=== PATIENT | female | born 1950 | race Caucasian/White ===

== ENCOUNTER 2016-02-28 14:28 | Outpatient (RCR) | payer MEDICARE, OTHER ==
[2016-02-19 16:32] LABS: BASOPHILS # (AUTO) 0.1 10^3/uL (0.0-0.1); BASOPHILS % (AUTO) 1 % (0-10); EOSINOPHILS # (AUTO) 0.2 10^3/uL (0.0-0.3); EOSINOPHILS % (AUTO) 2 % (0-10); LYMPHOCYTES # (AUTO) 3.4 X 10^3 (1.0-4.0); LYMPHOCYTES % (AUTO) 29 % (12-44); MEAN CORPUSCULAR HEMOGLOBIN 29 PG (25-34); MEAN CORPUSCULAR HGB CONC 35 G/DL (32-36); MEAN CORPUSCULAR VOLUME 84 FL (80-99); MEAN PLATELET VOLUME 8.3 FL (7.4-10.4); MONOCYTES # (AUTO) 1.1 X 10^3 (0.0-1.0); MONOCYTES % (AUTO) 9 % (0-12); NEUTROPHILS % (AUTO) 59 % (42-75); PLATELET COUNT 491 10^3/uL (130-400); RED BLOOD COUNT 4.83 10^6/uL (4.35-5.85); RED CELL DISTRIBUTION WIDTH 14.3 % (10.0-14.5); WHITE BLOOD COUNT 11.8 10^3/uL (4.3-11.0)
--- OUTSIDE RECORDS SUMMARY | 2016-02-19 16:33 | XMS REPORT | Continuity of Care Document ---
Author Author [facility] Organization [facility] Address Unknown Phone Unavailable Care Team Providers Care Fresco Artist Name Role Phone EVELIA CHU MD PCP Insurance Providers Payer Name Policy Number Subscriber Name Relationship [facility] [id number] Thong Mora E 01 Advance Directives Directive Response Recorded Date/Time Advance Directives Yes 10/06/15 6:15pm Health Care Power of Cigar Tobacco Rehandler N ISN'T SURE 10/06/15 6:15pm Organ Donor Yes 10/06/15 6:15pm Resuscitation Status Full Code 10/06/15 6:15pm Chief Complaint and Reason for Visit Chief Complaint Upper Extremity Reason for Visit [id number] Problems Active Problems Medical Problem Onset Date Status Chest pain Unknown Acute Contusion of left hand, initial encounter Unknown Acute Leukocytosis Unknown Acute Leukocytosis Unknown Acute Medications Current Home Medications Medication Dose Units Route Directions Days/Qty Instructions Start Date Simvastatin 20 Mg 20 Mg Oral Bedtime 10/07/14 Omeprazole 40 Mg 40 Mg Oral Bedtime 10/07/14 Levothyroxine Sodium 112 Mcg 112 Mcg Oral Daily 10/07/14 Triamcinolone Acetonide 10.8 Ml 1 Ml Nasal Bedtime 10/07/14 Past Home Medications Medication Directions Ordered Status [Levothyroxine] , 112 Mcg Oral Daily 02/15/10 Discontinued Cetirizine Hcl 10 Mg Capsule, 10 Mg Oral Daily 02/15/10 Discontinued Omeprazole Magnesium 20 Mg Capsule.dr, 40 Mg Oral Daily 02/15/10 Discontinued Triamcinolone Acetonide 10.8 Ml [place], 10.8 Ml Nasal Bedtime 10/07/14 Discontinued Aspirin 81 Mg Tablet.dr, 81 Mg Oral Daily 10/08/14 Discontinued Social History Social History Problem Response Recorded Date/Time Alcohol Use Occasionally Uses 10/06/2015 6:15pm Recreational Drug Use No 10/06/2015 6:15pm Recent Foreign Travel No 10/06/2015 6:12pm Recent Infectious Disease Exposure No 10/06/2015 6:12pm Sexually Transmitted Disease No 10/06/2015 6:15pm Smoking Status Current Everyday Smoker 10/06/2015 6:15pm Do you dip or chew tobacco? No 10/06/2015 6:15pm Query Response Start Date Stop Date Smoking Status Current Everyday Smoker Hospital Discharge Instructions No hospital discharge instructions. Plan of Care Discharge Date 10/06/15 7:15pm Disposition 01 HOME, SELF-CARE Condition at Discharge Stable Instructions/Education Provided Contusion (ED) Prescriptions See Medication Section Referrals EVELIA CHU MD - Primary Care Physician Additional Instructions/Education ICE TO AREA AT 20 MINUTE INTERVALS ELEVATE HAND MUCH POSSIBLE TYLENOL AND MOTRIN NEEDED FOR PAIN OR FEVER FOLLOW UP WITH OCCUPATIONAL HEALTH ON Friday FOR FOLLOW UP All discharge instructions reviewed with patient and/or family. Voiced understanding. Functional Status No functional status results. Allergies, Adverse Reactions, Alerts Allergen Type Severity Reaction Status Last Updated Penicillins ([id number]) Allergy Unknown Active 10/07/14 Codeine Allergy Unknown Active 10/07/14 Immunizations Name Given Type Tetanus Booster (TDap) Less than 5yrs Historical Vital Signs Acute Vital Signs Vital Response Date/Time Temperature (Fahrenheit) 98 degrees F (97.6 - 99.5) 10/06/2015 6:12pm Temperature (Calculated Celsius) 36.6696 degrees C (36.4 - 37.5) 10/06/2015 6 :12pm Temperature Source Tympanic 10/06/2015 6:12pm Pulse Rate (adult) 97 bpm (60 - 90) 10/06/2015 6:12pm Respiratory Rate 18 bpm (12 - 24) 10/06/2015 6:12pm O2 Sat by Pulse Oximetry 98 % (88 - 100) 10/06/2015 6:12pm Blood Pressure 137/81 mm Hg 10/06/2015 6:12pm Blood Pressure Mean 99 mm Hg 10/06/2015 6:12pm Pain Pain Intensity 4 10/06/2015 6:12pm Height (Feet) 5 feet 10/06/2015 6:12pm Height (Inches) 4 inches 10/06/2015 6:12pm Height (Calculated Centimeters) 162.341645 cm 10/06/2015 6:12pm Weight (Pounds) 163 pounds 10/06/2015 6:12pm Weight (Calculated Kilograms) 73.659349 kilograms 10/06/2015 6:12pm Height 5 ft 4 in Weight 163 lb Body Mass Index 28.0 kg/m^2 Results Laboratory Results Test Name Result Units Flags Reference Collection Date/Time Result Date/ Time Comments White Blood Count 11.4 10^3/uL H 4.3-11.0 06/21/2015 2:33pm 06/21/2015 2: 43pm Red Blood Count 5.06 10^6/uL 4.35-5.85 06/21/2015 2:33pm 06/21/2015 2: 43pm Hemoglobin 14.9 G/DL 11.5-16.0 06/21/2015 2:33pm 06/21/2015 2:43pm Hematocrit 43 % 35-52 06/21/2015 2:33pm 06/21/2015 2:43pm Mean Corpuscular Volume 84 FL 80-99 06/21/2015 2:33pm 06/21/2015 2: 43pm Mean Corpuscular Hemoglobin 29 PG 25-34 06/21/2015 2:33pm 06/21/2015 2: 43pm Mean Corpuscular Hemoglobin Concent 35 G/DL 32-36 06/21/2015 2:33pm 07/2015 2:43pm Red Cell Distribution Width 13.8 % 10.0-14.5 06/21/2015 2:33pm 2015 2:43pm Platelet Count 472 10^3/uL H 130-400 06/21/2015 2:33pm 06/21/2015 2:43pm Mean Platelet Volume 8.2 FL 7.4-10.4 06/21/2015 2:33pm 06/21/2015 2: 43pm Neutrophils (%) (Auto) 65 % 42-75 06/21/2015 2:33pm 06/21/2015 2:43pm Lymphocytes (%) (Auto) 27 % 12-44 06/21/2015 2:33pm 06/21/2015 2:43pm Monocytes (%) (Auto) 6 % 0-12 06/21/2015 2:33pm 06/21/2015 2:43pm Eosinophils (%) (Auto) 2 % 0-10 06/21/2015 2:33pm 06/21/2015 2:43pm Basophils (%) (Auto) 1 % 0-10 06/21/2015 2:33pm 06/21/2015 2:43pm Neutrophils # (Auto) 7.4 X 10^3 1.8-7.8 06/21/2015 2:33pm 06/21/2015 2: 43pm Lymphocytes # (Auto) 3.1 X 10^3 1.0-4.0 06/21/2015 2:33pm 06/21/2015 2: 43pm Monocytes # (Auto) 0.6 X 10^3 0.0-1.0 06/21/2015 2:33pm 06/21/2015 2: 43pm Eosinophils # (Auto) 0.2 10^3/uL 0.0-0.3 06/21/2015 2:33pm 06/21/2015 2 :43pm Basophils # (Auto) 0.1 10^3/uL 0.0-0.1 06/21/2015 2:33pm 06/21/2015 2: 43pm Sodium Level 131 MMOL/L L 135-145 06/21/2015 2:33pm 06/21/2015 3:07pm Potassium Level 4.0 MMOL/L 3.6-5.0 06/21/2015 2:33pm 06/21/2015 3:07pm Chloride Level 98 MMOL/L 98-107 06/21/2015 2:33pm 06/21/2015 3:07pm Carbon Dioxide Level 26 MMOL/L 21-32 06/21/2015 2:33pm 06/21/2015 3: 07pm Anion Gap 7 MMOL/L 5-14 06/21/2015 2:33pm 06/21/2015 3:07pm Blood Urea Nitrogen 13 MG/DL 7-18 06/21/2015 2:33pm 06/21/2015 3:07pm Creatinine 0.77 MG/DL 0.60-1.30 06/21/2015 2:33pm 06/21/2015 3:07pm BUN/Creatinine Ratio 17 06/21/2015 2:33pm 06/21/2015 3:07pm Estimat Glomerular Filtration Rate > 60 06/21/2015 2:33pm 2015 3:07pm GFR INTERPRETIVE DATA UNITS FOR ESTIMATED GFR (eGFR): mL/min/1.73 M2 REFERENCE RANGE FOR ESTIMATED GFR (eGFR) eGFR NORMAL eGFR >60 MODERATELY DECREASED eGFR 30-59 SEVERLY DECREASED eGFR 15-29 KIDNEY FAILURE <15 (OR DIALYSIS) Glucose Level 179 MG/DL H 70-105 06/21/2015 2:33pm 06/21/2015 3:07pm Calcium Level 9.8 MG/DL 8.5-10.1 06/21/2015 2:33pm 06/21/2015 3:07pm Total Bilirubin 0.3 MG/DL 0.1-1.0 06/21/2015 2:33pm 06/21/2015 3:07pm Alkaline Phosphatase 110 U/L 40-136 06/21/2015 2:33pm 06/21/2015 3: 07pm Aspartate Amino Transf (AST/SGOT) 15 U/L 5-34 06/21/2015 2:33pm 2015 3:07pm Alanine Aminotransferase (ALT/SGPT) 19 U/L 0-55 06/21/2015 2:33pm 06/21 3:07pm Total Protein 7.3 G/DL 6.4-8.2 06/21/2015 2:33pm 06/21/2015 3:07pm Albumin 4.5 G/DL 3.2-4.5 06/21/2015 2:33pm 06/21/2015 3:07pm Ferritin 55 NG/ML 15-150 06/21/2015 2:33pm 06/22/2015 7:04am Test performed at [facility] [address], [facility] [address] CLIA# [id number], Roma Matias MD - Restaurant Hostess Iron Level 57 UG/DL 35-180 06/21/2015 2:33pm 06/22/2015 7:04am Test performed at [facility] [address] [facility] [address] CLIA# [id number], Blanca Hill MD - Restaurant Hostess Transferrin % Saturation 15 % 15-50 06/21/2015 2:33pm 06/22/2015 7: 04am Total Iron Binding Capacity 369 UG/DL 280-380 06/21/2015 2:33pm 2015 7:04am Unsaturated Iron Binding Capacity 312 MCG/DL 06/21/2015 2:33pm 2015 7:04am Test performed at [address] [address] IA# [id number], Blanca Hill MD - Restaurant Hostess Procedures No known history of procedures. Encounters Encounter Location Arrival/Admit Date Discharge/Depart Date Attending Provider Departed Emergency Room [facility] 10/06/15 5:59pm 10/05 7:15pm EVELIA VALADEZ DO Discharged Recurring [facility] 06/21/15 2:22pm 11:59pm JAYDON WRIGHT MD Recent Diagnosis
[2016-02-19 16:55] LABS: ALANINE AMINOTRANSFERASE 7 U/L (0-55); ALBUMIN 4.6 G/DL (3.2-4.5); ANION GAP 12 MMOL/L (5-14); ASPARTATE AMINO TRANSFERASE 13 U/L (5-34); BILIRUBIN,TOTAL 0.1 MG/DL (0.1-1.0); BLOOD UREA NITROGEN 10 MG/DL (7-18); BUN/CREATININE RATIO 14; CALCIUM 9.4 MG/DL (8.5-10.1); CARBON DIOXIDE 19 MMOL/L (21-32); CHLORIDE 99 MMOL/L (98-107); CREATININE SERUM 0.71 MG/DL (0.60-1.30); GFR ESTIMATED > 60; GLUCOSE 97 MG/DL (70-105); POTASSIUM 4.3 MMOL/L (3.6-5.0); SODIUM 130 MMOL/L (135-145); TOTAL PROTEIN 7.4 G/DL (6.4-8.2)
[2016-02-19 17:15] LABS: THYROID STIMULATING HORMONE 2.87 UIU/ML (0.35-4.94)
[~2016-02-28 14:28] MED LIST: ASPI-266 PO; CETI10CA PO; LEVOTHYROXINE PO; LVT.112T PO; OMEP-83 PO; OMEP40CA36 PO; SIMV20TA3 PO; TRIA10.8 NS
== END 2016-05-19 | disposition home or self-care (01) ==
LOC: ONC 14:28
PROVIDERS: ATTEND Internal Medicine Hematology & Oncology
DX: D47.3 Essential (hemorrhagic) thrombocythemia (principal); E03.9 Hypothyroidism, unspecified; K21.9 Gastro-esophageal reflux disease without esophagitis; F17.210 Nicotine dependence, cigarettes, uncomplicated; Z79.899 Other long term (current) drug therapy
CPT/HCPCS: 36415; 80053; 82232; 82728; 83540; 84443; 85025; 99213

== ENCOUNTER 2016-08-20 15:55 | Outpatient (RCR) | payer MEDICARE, OTHER ==
--- OUTSIDE RECORDS SUMMARY | 2016-06-12 12:58 | XMS REPORT | Continuity of Care Document ---
Author Author [facility] Organization [facility] Address Unknown Phone Unavailable Care Team Providers Care Tool And Die Designer Name Role Phone EVELIA CHU MD PCP Insurance Providers Payer Name Policy Number Subscriber Name Relationship [facility] [id number] Thong Mora E 01 Advance Directives Directive Response Recorded Date/Time Advance Directives Yes 10/06/15 6:15pm Health Care Power of Adhesion Tester N ISN'T SURE 10/06/15 6:15pm Organ Donor Yes 10/06/15 6:15pm Resuscitation Status Full Code 10/06/15 6:15pm Chief Complaint and Reason for Visit Chief Complaint Upper Extremity Reason for Visit [id number] Problems Active Problems Medical Problem Onset Date [...] Daily 02/15/10 Discontinued Triamcinolone Acetonide 10.8 Ml [place], 10.8 Ml Nasal Bedtime 10/07/14 Discontinued Aspirin [...] Type Severity Reaction Status Last Updated Penicillins ([id number]) Allergy Unknown Active 10/07/14 Codeine Allergy Unknown [...] 4 inches 10/06/2015 6:12pm Height (Calculated Centimeters) 162.519835 cm 10/06/2015 6:12pm Weight (Pounds) 163 pounds 10/06/2015 6:12pm Weight (Calculated Kilograms) 73.238101 kilograms 10/06/2015 6:12pm Height 5 ft 4 [...] 06/21/2015 2:33pm 06/22/2015 7:04am Test performed at [facility] [address], [facility] [address] CLIA# [id number], Roma Matias MD - Aggregate Conveyor Operator Iron Level 57 UG/DL 35-180 06/21/2015 2:33pm 06/22/2015 7:04am Test performed at [facility] [address] [facility] [address] CLIA# [id number], Blanca Hill MD - Aggregate Conveyor Operator Transferrin % Saturation 15 % 15-50 06/21/2015 2:33pm 06/22/2015 7: 04am Total Iron Binding Capacity 369 UG/DL 280-380 06/21/2015 2:33pm 2015 7:04am Unsaturated Iron Binding Capacity 312 MCG/DL 06/21/2015 2:33pm 2015 7:04am Test performed at [address] [address] IA# [id number], Blanca Hill MD - Aggregate Conveyor Operator Procedures No known history of procedures. Encounters Encounter Location Arrival/Admit Date Discharge/Depart Date Attending Provider Departed Emergency Room [facility] 10/06/15 5:59pm 10/05 7:15pm EVELIA VALADEZ DO Discharged Recurring [facility] 06/21/15 2:22pm 11:59pm JAYDON WRIGHT MD Recent Diagnosis
[2016-06-12 13:23] LABS: BASOPHILS # (AUTO) 0.1 10^3/uL (0.0-0.1); BASOPHILS % (AUTO) 1 % (0-10); EOSINOPHILS # (AUTO) 0.2 10^3/uL (0.0-0.3); EOSINOPHILS % (AUTO) 3 % (0-10); LYMPHOCYTES # (AUTO) 2.4 X 10^3 (1.0-4.0); LYMPHOCYTES % (AUTO) 26 % (12-44); MEAN CORPUSCULAR HEMOGLOBIN 29 PG (25-34); MEAN CORPUSCULAR HGB CONC 34 G/DL (32-36); MEAN CORPUSCULAR VOLUME 87 FL (80-99); MEAN PLATELET VOLUME 8.3 FL (7.4-10.4); MONOCYTES # (AUTO) 0.7 X 10^3 (0.0-1.0); MONOCYTES % (AUTO) 8 % (0-12); NEUTROPHILS # (AUTO) 5.8 X 10^3 (1.8-7.8); NEUTROPHILS % (AUTO) 62 % (42-75); PLATELET COUNT 456 10^3/uL (130-400); RED BLOOD COUNT 4.74 10^6/uL (4.35-5.85); RED CELL DISTRIBUTION WIDTH 13.3 % (10.0-14.5); WHITE BLOOD COUNT 9.2 10^3/uL (4.3-11.0)
[2016-06-12 13:59] LABS: ALANINE AMINOTRANSFERASE 16 U/L (0-55); ALBUMIN 4.4 G/DL (3.2-4.5); ANION GAP 10 MMOL/L (5-14); ASPARTATE AMINO TRANSFERASE 16 U/L (5-34); BILIRUBIN,TOTAL 0.2 MG/DL (0.1-1.0); BLOOD UREA NITROGEN 11 MG/DL (7-18); BUN/CREATININE RATIO 14; CALCIUM 9.6 MG/DL (8.5-10.1); CARBON DIOXIDE 23 MMOL/L (21-32); CHLORIDE 99 MMOL/L (98-107); GFR ESTIMATED > 60; GLUCOSE 175 MG/DL (70-105); POTASSIUM 4.4 MMOL/L (3.6-5.0); SODIUM 132 MMOL/L (135-145); TOTAL PROTEIN 6.9 G/DL (6.4-8.2)
[2016-06-12 17:05] LABS: %SAT TOTAL IRON BINDING CAPIC 16 % (15-50); TIBC 348 ug/dL (280-380)
[2016-06-13 08:49] LABS: FERRITIN 68 ng/mL (15-150); UIBC 291 ug/dL (55-450)
[2016-08-19 10:44] LABS: BASOPHILS # (AUTO) 0.1 10^3/uL (0.0-0.1); BASOPHILS % (AUTO) 1 % (0-10); EOSINOPHILS # (AUTO) 0.4 10^3/uL (0.0-0.3); EOSINOPHILS % (AUTO) 3 % (0-10); LYMPHOCYTES # (AUTO) 3.2 X 10^3 (1.0-4.0); LYMPHOCYTES % (AUTO) 29 % (12-44); MEAN CORPUSCULAR HEMOGLOBIN 30 PG (25-34); MEAN CORPUSCULAR HGB CONC 35 G/DL (32-36); MEAN CORPUSCULAR VOLUME 84 FL (80-99); MEAN PLATELET VOLUME 8.5 FL (7.4-10.4); MONOCYTES # (AUTO) 0.9 X 10^3 (0.0-1.0); MONOCYTES % (AUTO) 8 % (0-12); NEUTROPHILS # (AUTO) 6.5 X 10^3 (1.8-7.8); NEUTROPHILS % (AUTO) 59 % (42-75); PLATELET COUNT 464 10^3/uL (130-400); RED BLOOD COUNT 4.81 10^6/uL (4.35-5.85); RED CELL DISTRIBUTION WIDTH 13.3 % (10.0-14.5)
[2016-08-19 11:34] LABS: ALANINE AMINOTRANSFERASE 14 U/L (0-55); ALBUMIN 4.4 G/DL (3.2-4.5); ANION GAP 9 MMOL/L (5-14); ASPARTATE AMINO TRANSFERASE 18 U/L (5-34); BILIRUBIN,TOTAL 0.4 MG/DL (0.1-1.0); BLOOD UREA NITROGEN 13 MG/DL (7-18); BUN/CREATININE RATIO 18; CARBON DIOXIDE 23 MMOL/L (21-32); CHLORIDE 99 MMOL/L (98-107); CREATININE SERUM 0.74 MG/DL (0.60-1.30); GFR ESTIMATED > 60; GLUCOSE 96 MG/DL (70-105); POTASSIUM 4.2 MMOL/L (3.6-5.0); SODIUM 131 MMOL/L (135-145); TOTAL PROTEIN 7.3 G/DL (6.4-8.2)
[2016-08-19 12:03] LABS: THYROID STIMULATING HORMONE 2.31 UIU/ML (0.35-4.94)
[~2016-08-20 15:55] MED LIST changes: -CATHETER FLUSH 10 ML SYR IV PRN; -IOHEXOL 350 MG/ML 100 ML (OMNIPAQUE 350) VIAL IV ONE; -NS 100 ML (IVPB) BAG IV ONE
== END 2016-09-10 | disposition home or self-care (01) ==
LOC: ONC 15:55
PROVIDERS: ATTEND Internal Medicine Hematology & Oncology
DX: D47.3 Essential (hemorrhagic) thrombocythemia (principal); E03.9 Hypothyroidism, unspecified; K21.9 Gastro-esophageal reflux disease without esophagitis; F17.210 Nicotine dependence, cigarettes, uncomplicated; Z79.899 Other long term (current) drug therapy
CPT/HCPCS: 36415; 80053; 82728; 83540; 84439; 84443; 85025; 99213

== ENCOUNTER → 2016-08-20 | Outpatient (CLI) | payer MEDICARE, OTHER ==
[~2016-08-20] MED LIST changes: +CATHETER FLUSH 10 ML SYR IV PRN; +IOHEXOL 350 MG/ML 100 ML (OMNIPAQUE 350) VIAL IV ONE; +NS 100 ML (IVPB) BAG IV ONE
--- NOTE | 2016-08-20 12:28 | Diagnostic Imaging Report ---
PROCEDURE: CT chest with contrast only. TECHNIQUE: Multiple contiguous axial images were obtained through the chest after administration of intravenous contrast. INDICATION: Cough, adenopathy, or abnormality of platelets. Exam compared to 02/20/2016. FINDINGS: A precarinal node measures an AP thickness of 9 mm unchanged without appreciable morphological distortion. Fat-containing tiny subcentimeter node pretracheal just above the lucho stable. No abnormal tissue in the aorticopulmonary window. Subcarinal mediastinum normal. Small subcentimeter right hilar node stable. No suspicious thoracic lymphadenopathy. The axilla contains few small subcentimeter reactive benign-appearing nodes. There is no lung mass or suspicious pulmonary nodule. Some centrilobular emphysematous changes in the pulmonary apices chronic. No sabrina bronchiectasis. No effusion. Upper abdomen shows incomplete visualization of the spleen appearing within normal limits of size. Low-density thickening of the left adrenal gland stable. IMPRESSION: No suspicious appearing thoracic lymph nodes, COPD in the apices stable. No lung mass. No infiltrate or effusion. Low-density thickening of the left adrenal unchanged likely some adenomatous hyperplasia. Dictated by: Dictated on workstation # [id number]
== END ==
LOC: RAD 09:05
PROVIDERS: ATTEND Internal Medicine Hematology & Oncology
DX: R59.0 Localized enlarged lymph nodes (principal); J44.9 Chronic obstructive pulmonary disease, unspecified
CPT/HCPCS: 71260

== ENCOUNTER 2017-04-17 15:01 | Outpatient (RCR) | payer MEDICARE, OTHER ==
[2017-04-16 16:24] LABS: BASOPHILS # (AUTO) 0.1 10^3/uL (0.0-0.1); BASOPHILS % (AUTO) 1 % (0-10); EOSINOPHILS # (AUTO) 0.4 10^3/uL (0.0-0.3); EOSINOPHILS % (AUTO) 3 % (0-10); HEMATOCRIT 43 % (35-52); HEMOGLOBIN 14.8 G/DL (11.5-16.0); LYMPHOCYTES % (AUTO) 36 % (12-44); MEAN CORPUSCULAR HEMOGLOBIN 29 PG (25-34); MEAN CORPUSCULAR HGB CONC 35 G/DL (32-36); MEAN CORPUSCULAR VOLUME 85 FL (80-99); MEAN PLATELET VOLUME 8.8 FL (7.4-10.4); MONOCYTES % (AUTO) 9 % (0-12); NEUTROPHILS # (AUTO) 5.8 X 10^3 (1.8-7.8); NEUTROPHILS % (AUTO) 51 % (42-75); PLATELET COUNT 480 10^3/uL (130-400); RED BLOOD COUNT 5.03 10^6/uL (4.35-5.85); RED CELL DISTRIBUTION WIDTH 13.4 % (10.0-14.5); WHITE BLOOD COUNT 11.3 10^3/uL (4.3-11.0)
[2017-04-16 16:39] LABS: ALANINE AMINOTRANSFERASE 20 U/L (0-55); ALBUMIN 4.4 GM/DL (3.2-4.5); ALKALINE PHOSPHATASE 111 U/L (40-136); BILIRUBIN,TOTAL 0.2 MG/DL (0.1-1.0); BUN/CREATININE RATIO 21; CALCIUM 9.6 MG/DL (8.5-10.1); CARBON DIOXIDE 26 MMOL/L (21-32); CHLORIDE 100 MMOL/L (98-107); CREATININE SERUM 0.77 MG/DL (0.60-1.30); GFR ESTIMATED > 60; GLUCOSE 111 MG/DL (70-105); POTASSIUM 4.3 MMOL/L (3.6-5.0); SODIUM 134 MMOL/L (135-145); TOTAL PROTEIN 7.8 GM/DL (6.4-8.2)
== END 2017-07-15 | disposition home or self-care (01) ==
LOC: ONC 15:01
PROVIDERS: ATTEND Internal Medicine Hematology & Oncology
DX: D47.3 Essential (hemorrhagic) thrombocythemia (principal); E03.9 Hypothyroidism, unspecified; K21.9 Gastro-esophageal reflux disease without esophagitis; F17.210 Nicotine dependence, cigarettes, uncomplicated; Z79.899 Other long term (current) drug therapy
CPT/HCPCS: 36415; 80053; 82728; 83540; 85025; 99213

== ENCOUNTER 2017-05-31 16:05 | Emergency (ER) | payer MEDICARE, OTHER | END 2017-05-31 16:49 | disposition left against medical advice (07) | LOC: EDUNIT# 16:05 → ER 16:06 | DX: J10.1 Influenza due to other identified influenza virus with other respiratory manifestations (principal); R06.02 Shortness of breath; R40.4 Transient alteration of awareness ==

== ENCOUNTER 2018-04-23 11:50 | Emergency (ER) | payer MEDICARE, OTHER ==
[~2018-04-23] VITALS: Ht 162.6 cm; Wt 79.4 kg
[2018-04-23] MEDS ORDERED: ASPIRIN 81 MG CHEW (CHILDREN'S ASA) PO ONE (12:00)
[2018-04-23 12:08] LABS: BASOPHILS # (AUTO) 0.1 10^3/uL (0.0-0.1); BASOPHILS % (AUTO) 1 % (0-10); EOSINOPHILS # (AUTO) 0.3 10^3/uL (0.0-0.3); EOSINOPHILS % (AUTO) 3 % (0-10); HEMATOCRIT 41 % (35-52); HEMOGLOBIN 13.7 G/DL (11.5-16.0); LYMPHOCYTES # (AUTO) 3.8 X 10^3 (1.0-4.0); LYMPHOCYTES % (AUTO) 32 % (12-44); MEAN CORPUSCULAR HEMOGLOBIN 29 PG (25-34); MEAN CORPUSCULAR HGB CONC 34 G/DL (32-36); MEAN CORPUSCULAR VOLUME 85 FL (80-99); MEAN PLATELET VOLUME 8.8 FL (7.4-10.4); MONOCYTES # (AUTO) 0.9 X 10^3 (0.0-1.0); MONOCYTES % (AUTO) 8 % (0-12); NEUTROPHILS # (AUTO) 6.8 X 10^3 (1.8-7.8); NEUTROPHILS % (AUTO) 57 % (42-75); PLATELET COUNT 473 10^3/uL (130-400); RED BLOOD COUNT 4.76 10^6/uL (4.35-5.85); RED CELL DISTRIBUTION WIDTH 13.1 % (10.0-14.5)
--- NOTE | 2018-04-23 12:15 | ED Chest Pain ---
General Chief Complaint: Chest Pain Stated Complaint: CHEST PAIN History of Present Illness Date Seen by Provider: Apr 23, 2018 Time Seen by Provider: 11:50 Initial Comments 67-year-old female presents for chest pain which began 25 minutes ago , the symptoms did radiate into her neck. She has no known history of cardiac disease, no family history of Cardiac disease. Both parents in their 80s from cancer. She does smoke, approx 1 pack a day but she hasn't inhaled for the last year. She does take an aspirin daily in the evening before bed. She denies any associated nausea, vomiting, diarrhea, dizziness, diaphoresis or headache. She takes Prilosec and levothyroxine. She does report that her symptoms are improving. She had her lipids checked a few months ago and they were all in normal range and she is not on any medications for hypercholesterolemia. Timing/Duration: 1/2 hour Severity/Quality: moderate Location: substernal, back Radiation: jaw, neck Activities at Onset: activity (she was at work) Prior CP/Workup: no prior chest pain ASA po PLUGMAN: No NTG SL PLUGMAN: No Associated Symptoms: denies symptoms (CEM PHILLIPS) Allergies and Home Medications Allergies Coded Allergies: Penicillins (Unverified Allergy, Unknown, 10/07/14) codeine (Unverified Allergy, Unknown, 10/07/14) Home Medications Levothyroxine Sodium 112 Mcg Tab, 112 MCG PO DAILY, (Reported) Omeprazole 40 Mg Capsule.dr, 40 MG PO HS, (Reported) Simvastatin 20 Mg Tablet, 20 MG PO HS, (Reported) Triamcinolone Acetonide 10.8 Ml [place], 1 ML NS HS, (Reported) Patient Home Medication List Home Medication List Reviewed: Yes (CEM PHILLIPS) Review of Systems Review of Systems Constitutional: no symptoms reported, see HPI Cardiovascular: See HPI (CEM PHILLIPS) All Other Systems Reviewed Negative Unless Noted: Yes (CEM PHILLIPS) Past Nyngzca-Sgyzvm-Byxcxq Hx Past Med/Social Hx: Reviewed Nursing Past Med/Soc Hx (CEM PHILLIPS) Immunizations Up To Date Tetanus Booster (TDap): Less than 5yrs (CEM PHILLIPS) Past Medical History Abdominal, Gallbladder, Orthopedic, Tonsillectomy High Cholesterol Reproductive Disorders: No Female Reproductive Disorders: Denies Sexually Transmitted Disease: No Gastroesophageal Reflux, Gall Bladder Disease Arthritis Hypothyroidsim Tinnitis Loss of Vision: Denies Hearing Impairment: Hard of Hearing Adverse Reaction/Blood Tranf: No (CEM PHILLIPS) Family Medical History FH: breast cancer MATERNAL AUNT FH: leukemia 19 MOTHER FH: lung cancer 19 FATHER FH: smoking 19 FATHER Cancer (CEM PHILLIPS) Physical Exam Vital Signs Vital Signs - First Documented (LEOLA CASTORENA) Vital Signs Capillary Refill : (CEM PHILLIPS) Height, Weight, BMI Height: 5'4" Weight: 163lbs. 1.0oz. 73.570172bw; BMI Method:Stated General Appearance: No Apparent Distress, WD/WN HEENT: PERRL/EOMI, TMs Normal, Normal ENT Inspection, Pharynx Normal Neck: Full Range of Motion, Normal Inspection, Non Tender, Supple Respiratory: Chest Non Tender, Lungs Clear, Normal Breath Sounds Cardiovascular: Regular Rate, Rhythm, No Edema, No JVD, No Murmur, Normal Peripheral Pulses Gastrointestinal: Normal Bowel Sounds, Non Tender, Soft Neurologic/Psychiatric: Alert, Oriented x3, No Motor/Sensory Deficits, Normal Mood/Affect Skin: Normal Color, Warm/Dry Lymphatic: No Adenopathy (CEM PHILLIPS) Progress/Results/Core Measures Results/Orders Lab Results Laboratory Tests Test 04/23/18 11:32 Range/Units White Blood Count 12.0 H 4.3-11.0 10^3/uL Red Blood Count 4.76 4.35-5.85 10^6/uL Hemoglobin 13.7 11.5-16.0 G/DL Hematocrit 41 35-52 % Mean Corpuscular Volume 85 80-99 FL Mean Corpuscular Hemoglobin 29 25-34 PG Mean Corpuscular Hemoglobin Concent 34 32-36 G/DL Red Cell Distribution Width 13.1 10.0-14.5 % Platelet Count 473 H 130-400 10^3/uL Mean Platelet Volume 8.8 7.4-10.4 FL Neutrophils (%) (Auto) 57 42-75 % Lymphocytes (%) (Auto) 32 12-44 % Monocytes (%) (Auto) 8 0-12 % Eosinophils (%) (Auto) 3 0-10 % Basophils (%) (Auto) 1 0-10 % Neutrophils # (Auto) 6.8 1.8-7.8 X 10^3 Lymphocytes # (Auto) 3.8 1.0-4.0 X 10^3 Monocytes # (Auto) 0.9 0.0-1.0 X 10^3 Eosinophils # (Auto) 0.3 0.0-0.3 10^3/uL Basophils # (Auto) 0.1 0.0-0.1 10^3/uL Prothrombin Time 12.9 12.2-14.7 SEC INR Comment 1.0 0.8-1.4 Activated Partial Thromboplast Time 34 24-35 SEC Sodium Level 133 L 135-145 MMOL/L Potassium Level 4.1 3.6-5.0 MMOL/L Chloride Level 98 98-107 MMOL/L Carbon Dioxide Level 22 21-32 MMOL/L Anion Gap 13 5-14 MMOL/L Blood Urea Nitrogen 15 7-18 MG/DL Creatinine 0.70 0.60-1.30 MG/DL Estimat Glomerular Filtration Rate > 60 BUN/Creatinine Ratio 21 Glucose Level 96 70-105 MG/DL Calcium Level 9.8 8.5-10.1 MG/DL Corrected Calcium 8.5-10.1 MG/DL Magnesium Level 2.6 H 1.8-2.4 MG/DL Total Bilirubin 0.3 0.1-1.0 MG/DL Aspartate Amino Transf (AST/SGOT) 22 5-34 U/L Alanine Aminotransferase (ALT/SGPT) 22 0-55 U/L Alkaline Phosphatase 118 40-136 U/L Total Creatine Kinase 92 29-168 U/L Creatine Kinase MB 1.3 <6.6 NG/ML Myoglobin 24.6 10.0-92.0 NG/ML Troponin I < 0.30 <0.30 NG/ML Total Protein 7.7 6.4-8.2 GM/DL Albumin 4.6 H 3.2-4.5 GM/DL (LEOLA CASTORENA) My Orders Orders - LEOLA CASTORENA Troponin I (04/23/18 15:30) Ekg Tracing (04/23/18 15:30) (LEOLA CASTORENA) Medications Given in ED Current Medications Medications Dose Ordered Sig/Jesse Route Start Time Stop Time Status Last Admin Dose Admin Aspirin 324 mg ONCE ONCE PO 04/23/18 12:00 04/23/18 12:01 DC 12/6/18 12:03 324 MG (LEOLA CASTORENA) Vital Signs/I&O 04/23/18 04/23/18 11:52 11:52 Temp 97.3 Pulse 86 Resp 23 B/P (MAP) 146/78 (100) Pulse Ox 100 O2 Delivery Room Air Room Air (LEOLA CASTORENA) Progress Progress Note : Time: 11:50 Progress Note Patient seen and evaluated, EKG and chest pain workup started. Aspirin 324 mg by mouth given. We'll continue to monitor. 1240 patient care transferred to SOBIA Monzon. Report given. 1515 resumed care of patient. She continues to have no chest pain. She is sitting in bed talking with no complaints. Will obtain repeat troponin at 1530 and plan care after that. 1630 repeat troponin negative, discussed patient with Dr. Mayes. She recommended follow-up with her primary care provider. Discharge instructions and return precautions reviewed with her. (CEM PHILLIPS) Initial ECG Impression Date: Apr 23, 2018 Initial ECG Impression Time: 11:54 Initial ECG Rate: 82 Initial ECG Rhythm: Normal Sinus Initial ECG Intervals: Normal Initial ECG Intervals OR 160, QRS T 84, QT 372, QTC 435. Grady P 47, QRS -19, T 35. Initial ECG Impression: Normal Initial ECG Comparisson: Unchanged (reviewed EKG from October 08, 2014.) Comment Reviewed with Dr. Contreras, concurred with interpretation. (CEM PHILLIPS) Diagnostic Imaging Diagonstic Imaging: Xray Plain Films/CT/US/NM/MRI: chest Comments NAME: MITCHELL [facility] REC#: [id number] PT STATUS: REG ER : 1950 PHYSICIAN: CEM PHILLIPS ADMIT DATE: 04/23/18/ER Draft Date of Exam:04/23/18 CHEST 1 VIEW, AP/PA ONLY INDICATION: Chest pain. COMPARISON: 10/07/2014. FINDINGS: Single frontal view of the chest demonstrates normal heart size and pulmonary vascularity. The lungs are well aerated and clear. No large pleural effusion or pneumothorax is seen. The visualized osseous structures show no acute abnormalities. IMPRESSION: 1. No acute cardiopulmonary process. Dictated on workstation # [id number] Dict: 04/23/18 1221 Trans: 04/23/18 1223 [id number] Interpreted by: LISA MENA MD Electronically signed by Reviewed: Reviewed by Me (CEM PHILLIPS) Departure Communication (Admissions) patient care assumed at 1230 from TYRESE Coelho. all laboratory and diagnostic study findings discussed with the patient. patient denies pain or SOA at this time. We will repeat the troponin and ECG in 4 hours. patient verbalizes understanding and is agreeable to the plan of care. (LEOLA CASTORENA) Impression Primary Impression: Chest pain Qualified Codes: R07.9 - Chest pain, unspecified Disposition: HOME, SELF-CARE Condition: Improved Departure-Patient Inst. Decision time for Depature: 16:30 (CEM PHILLIPS) Referrals: EVELIA CHU MD (PCP/Family) Primary Care Physician Patient Instructions: Chest Pain That Is Not Caused by the Heart (DC), Acid Reflux (Gastroesophageal Reflux Disease), Adult (DC) Add. Discharge Instructions: Continue to take aspirin, once daily. Follow-up with your primary care provider in approximately one week. Return to the emergency department for acute chest pain, especially if the pain is associated with nausea and vomiting, sweating, or weakness. All discharge instructions reviewed with patient and/or family. Voiced understanding. Copy Copies To 1: EVELIA CHU MD, AMY ARNP Apr 23, 2018 12:15 LEOLA CASTORENA Apr 23, 2018 15:40
[2018-04-23 12:24] LABS: ALANINE AMINOTRANSFERASE 22 U/L (0-55); ALBUMIN 4.6 GM/DL (3.2-4.5); ALKALINE PHOSPHATASE 118 U/L (40-136); BILIRUBIN,TOTAL 0.3 MG/DL (0.1-1.0); BUN/CREATININE RATIO 21; CALCIUM 9.8 MG/DL (8.5-10.1); CARBON DIOXIDE 22 MMOL/L (21-32); CHLORIDE 98 MMOL/L (98-107); CREATINE KINASE 92 U/L (29-168); GFR ESTIMATED > 60; GLUCOSE 96 MG/DL (70-105); MAGNESIUM 2.6 MG/DL (1.8-2.4); POTASSIUM 4.1 MMOL/L (3.6-5.0); SODIUM 133 MMOL/L (135-145); TOTAL PROTEIN 7.7 GM/DL (6.4-8.2)
--- NOTE | 2018-04-23 12:24 | Diagnostic Imaging Report ---
INDICATION: Chest pain. COMPARISON: 10/07/2014. FINDINGS: Single frontal view of the chest demonstrates normal heart size and pulmonary vascularity. The lungs are well aerated and clear. No large pleural effusion or pneumothorax is seen. The visualized osseous structures show no acute abnormalities. IMPRESSION: 1. No acute cardiopulmonary process. Dictated by: Dictated on workstation # [id number]
[2018-04-23 12:26] LABS: PROTHROMBIN TIME PATIENT 12.9 SEC (12.2-14.7)
[2018-04-23 12:32] LABS: CREATINE KINASE MB 1.3 NG/ML (<6.6); MYOGLOBIN SERUM 24.6 NG/ML (10.0-92.0)
--- OUTSIDE RECORDS SUMMARY | 2018-04-23 14:30 | XMS REPORT | Continuity of Care Document ---
Author Author [facility] Address Unknown Phone Unavailable Allergies Active Description Code Type Severity Reaction Onset Reported/Identified Relationship to Patient Clinical Status Yes CODEINE-GUAIFENESIN UNKNOWN UNKNOWN Yes PENICILLIN G BENZATHINE UNKNOWN UNKNOWN Yes codeine [id number] Drug Allergy Unknown N/A 10/07/2014 Yes Penicillins [id number] Drug Allergy Unknown N/A 10/07/2014 Medications Medication Packaging Start Date Stop Date Route Dosage Sig CEFDINIR CAP 300 MG (OMNICEF) MG 06/10/2017 BID&0800,2000 METHYLPREDNISOLONE VIAL INJ 40 MG/CC (SOLU-MEDROL VIAL) MG 05/31/2017 06/05/2017 BID&0800,2000 IPRATROPIUM/ALBUTEROL INH SOLN (DUO-NEB INH SOLN) MLS 05/31/2017 06/07/2017 QID&0600,1100,1600,2100 LEVOTHYROXINE TAB 125 MCG (SYNTHROID) MCG 06/01/2017 06/07/2017 Daily&0900 KETOROLAC VIAL INJ 30 MG/CC (TORADOL VIAL) MG 06/01/2017 06/01/2017 ONCE&1018 OSELTAMIVIR CAP 75 MG (TAMIFLU) MG 06/01/2017 06/06/2017 BID&0800,2000 Problems Date Dx Coded Attending Type Code Diagnosis Diagnosed By 04/13/2012 Ot 244.9 HYPOTHYROIDISM NOS 04/13/2012 Ot 562.10 DIVERTICULOSIS COLON (W/O MENT OF HEMORR 04/13/2012 Ot V58.69 OTH MED,LT, CURRENT USE 04/13/2012 Ot V76.51 SCREEN MAL NEOP-COLON 04/01/2014 KYLE ANDREWS, JAYDON Allen Ot 238.71 04/01/2014 KYLE ANDREWS, JAYDON Allen Ot 244.9 04/01/2014 KYLE ANDRESW, JAYDON Allen Ot 305.1 04/01/2014 KYLE ANDREWS, JAYDON Allen Ot 530.81 04/01/2014 KYLE ANDREWS, JAYDON Allen Ot 716.90 04/01/2014 KYLE ANDREWS, JAYDON Allen Ot V58.69 04/01/2014 KYLE ANDREWS, JAYDON Allen Ot 286.9 04/01/2014 KYLE ANDREWS, JAYDNO Allen Ot 305.1 04/01/2014 KYLE ANDREWS, JAYDON Allen Ot 492.8 05/18/2014 KYLE ANDREWS, JAYDON Allen Ot 238.71 ESSENTIAL THROMBOCYTHEMIA 05/18/2014 KYLE ANDREWS, JAYDON Allen Ot 244.9 HYPOTHYROIDISM NOS 05/18/2014 KYLE ANDREWS, JAYDON Aleln Ot 305.1 TOBACCO USE DISORDER 05/18/2014 KYLE ANDREWS, JAYDON Allen Ot 530.81 ESOPHAGEAL REFLUX 05/18/2014 KYLE ANDREWS, JAYDON Allen Ot 716.90 ARTHROPATHY NOS-UNSPEC 05/18/2014 KYLE ANDREWS, JAYDON Allen Ot V58.69 OT MED,LT,CURRENT USE 06/07/2014 KYLE ANDREWS, JAYDON Allen Ot 238.71 06/07/2014 KYLE ANDREWS, JAYDON Allen Ot 244.9 06/07/2014 KYLE ANDREWS, JAYDON Allen Ot 305.1 06/07/2014 KYLE ANDREWS, JAYDON Allen Ot 530.81 06/07/2014 KYLE ANDREWS, JAYDON Allen Ot 716.90 06/07/2014 KYLE ANDREWS, JAYDON Allen Ot V58.69 06/14/2014 KYLE ANDREWS, JAYDON Allen Ot 238.71 06/14/2014 KYLE ANDREWS, JAYDON Allen Ot 244.9 06/14/2014 KYLE ANDREWS, JAYDON Allen Ot 305.1 06/14/2014 KYLE ANDREWS, JAYDON Allen Ot 530.81 06/14/2014 KYLE ANDREWS, JAYDON Allen Ot 716.90 06/14/2014 KYLE ANDREWS, JAYDON Allen Ot V58.69 06/15/2014 KYLE ANDREWS, JAYDON Allen Ot 238.71 06/15/2014 KYLE ANDREWS, JAYDON Allen Ot 244.9 06/15/2014 KYLE ANDREWS, JAYDON Allen Ot 305.1 06/15/2014 KYLE ANDREWS, JAYDON Allen Ot 530.81 06/15/2014 KYLE ANDREWS, JAYDON Allen Ot 716.90 06/15/2014 KYLE ANDREWS, JAYDON Allen Ot V58.69 07/07/2014 KYLE ANDREWS, JAYDON Allen Ot 238.71 07/07/2014 KYLE ANDREWS, JAYDON Allen Ot 244.9 07/07/2014 KYLE ANDREWS, JAYDON Allen Ot 305.1 07/07/2014 KYLE ANDREWS, JAYDON Allen Ot 530.81 07/07/2014 KYLE ANDREWSJAYDON Ot 716.90 07/07/2014 JAYDON WRIGHT MD Ot V58.69 09/12/2014 JAYDON WRIGHT MD Ot 238.71 ESSENTIAL THROMBOCYTHEMIA 09/12/2014 JAYDON RWIGHT MD Ot 244.9 HYPOTHYROIDISM NOS 09/12/2014 JAYDON WRIGHT MD Ot 305.1 TOBACCO USE DISORDER 09/12/2014 JAYDON WRIGHT MD Ot 530.81 ESOPHAGEAL REFLUX 09/12/2014 JAYDON WRIGHT MD Ot 716.90 ARTHROPATHY NOS-UNSPEC 09/12/2014 JAYDON WRIGHT MD Ot V58.69 OTH MED,LT,CURRENT USE 10/07/2014 JAYDON WRIGHT MD Ot 238.71 10/07/2014 JAYDON WRIGHT MD Ot 244.9 10/07/2014 JAYDON WRIGHT MD Ot 305.1 10/07/2014 JAYDON WRIGHT MD Ot 530.81 10/07/2014 JAYDON WRIGHT MD Ot 716.90 10/07/2014 JAYDON WRIGHT MD Ot V58.69 10/08/2014 THANH ANDREWS FACC, TANMAY FACP CCDS Ot 244.9 HYPOTHYROIDISM NOS 10/08/2014 THANH ANDREWS FACC, ALI FACP CCDS Ot 272.4 HYPERLIPIDEMIA NEC/NOS 10/08/2014 THANH ANDREWS FACC, ALI FACP CCDS Ot 276.1 HYPOSMOLALITY 10/08/2014 THANH ANDREWS FACC, ALI FACP CCDS Ot 288.60 LEUKOCYTOSIS, UNSPECIFIED 10/08/2014 TAHNH ANDREWS FACC, ALI FACP CCDS Ot 305.1 TOBACCO USE DISORDER 10/08/2014 THANH ANDREWS FACC, ALI FACP CCDS Ot 414.01 CORONARY ATHEROSCLEROSIS OF [place] CORON 10/08/2014 THANH ANDREWS FACC, ALI FACP CCDS Ot 530.81 ESOPHAGEAL REFLUX 10/08/2014 THANH ANDREWS FACC, ALI FACP CCDS Ot 786.50 CHEST PAIN NOS 10/08/2014 THANH ANDREWS FACC, ALI FACP CCDS Ot V58.69 OTH MED,LT,CURRENT USE 10/11/2014 JAYDON WRIGHT MD Ot 238.71 10/11/2014 JAYDON WRIGHT MD Ot 244.9 10/11/2014 JAYDON WRIGHT MD Ot 305.1 10/11/2014 JAYDON WRIGHT MD Ot 530.81 10/11/2014 JADYON WRIGHT MD Ot 716.90 10/11/2014 KYLE ANDREWS, JAYDON Allen Ot V58.69 10/12/2014 KYLE ANDREWS, JAYDON Allen Ot 238.71 10/12/2014 KYLE ANDREWS, JAYDON Allen Ot 244.9 10/12/2014 KYLE ANDREWS, JAYDON Allen Ot 305.1 10/12/2014 KYLE ANDREWS, JAYDON Allen Ot 530.81 10/12/2014 KYLE ANDREWS, JAYDON Alejandro Ot 716.90 10/12/2014 KYLE ANDREWS, JAYDON Allen Ot V58.69 10/13/2014 THANH ANDREWS FACC, ALI FACP CCDS Ot 244.9 10/13/2014 THANH ANDREWS FACC, ALI FACP CCDS Ot 272.4 10/13/2014 THANH ANDREWS FACC, ALI FACP CCDS Ot 276.1 10/13/2014 THANH ANDREWS FACC, ALI FACP CCDS Ot 288.60 10/13/2014 THANH ANDREWS FACC, ALI FACP CCDS Ot 305.1 10/13/2014 THANH ANDREWS FACC, ALI FACP CCDS Ot 414.01 10/13/2014 THANH ANDREWS FACC, ALI FACP CCDS Ot 530.81 10/13/2014 THANH ANDREWS FACC, ALI FACP CCDS Ot 786.50 10/13/2014 THANH ANDERWS FACC, ALI FACP CCDS Ot V58.69 11/08/2014 KYLE ANDREWS, JAYDON Allen Ot 238.71 11/08/2014 KYLE ANDREWS, JAYDON Allen Ot 244.9 11/08/2014 KYLE ANDREWS, JAYDON Allen Ot 305.1 11/08/2014 KYLE ANDREWS, JAYDON Allen Ot 530.81 11/08/2014 KYLE ANDREWS, JAYDON Alejandro Ot 716.90 11/08/2014 KYLE ANDREWS, JAYDON Allen Ot V58.69 11/21/2014 KYLE ANDREWS, JAYDON Allen Ot 238.71 11/21/2014 KYLE ANDREWS, JAYDON Allen Ot 244.9 11/21/2014 KYLE ANDREWS, JAYDON Allen Ot 305.1 11/21/2014 KYLE ANDREWS, JAYDON Allen Ot 530.81 11/21/2014 KYLE ANDREWS, JAYDON Allen Ot 716.90 11/21/2014 KYLE ANDREWS, JAYDON Allen Ot V58.69 01/09/2015 KYLE ANDREWS, JAYDON Allen Ot 238.71 ESSENTIAL THROMBOCYTHEMIA 01/09/2015 KYLE ANDREWS, JAYDON Allen Ot 244.9 HYPOTHYROIDISM NOS 01/09/2015 KYLE ANDREWS, JAYDON Allen Ot 305.1 TOBACCO USE DISORDER 01/09/2015 KYLE ANDREWS, JAYDON Allen Ot 530.81 ESOPHAGEAL REFLUX 01/09/2015 KYLE ANDERWS, JAYDON Allen Ot 716.90 ARTHROPATHY NOS-UNSPEC 01/09/2015 KYLE ANDREWS, JAYDON Allen Ot V58.69 OTH MED,LT,CURRENT USE 04/19/2015 KYLE ANDREWS, JAYDON Allen Ot 238.71 04/19/2015 KYLE ANDREWS, JAYDON Allen Ot 244.9 04/19/2015 KYLE ANDREWS, JAYDON Allen Ot 305.1 04/19/2015 KYLE ANDREWS, JAYDON Allen Ot 530.81 04/19/2015 KYLE ANDREWS, JAYDON Allen Ot 716.90 04/19/2015 KYLE ANDREWS, JAYDON Allen Ot V58.69 06/22/2015 KYLE ANDREWS, JAYDON Allen Ot 238.71 06/22/2015 KYLE ANDREWS, JAYDON Allen Ot 244.9 06/22/2015 KYLE ANDREWS, JAYDON Allen Ot 305.1 06/22/2015 KYLE ANDREWS, JAYDON Allen Ot 530.81 06/22/2015 KYLE ANDREWS, JAYDON Allen Ot 716.90 06/22/2015 KYLE ANDREWS, JAYDON Allen Ot V58.69 08/10/2015 KYLE ANDREWS, JAYDON Allen Ot D47.3 08/10/2015 KYLE ANDREWS, JAYDON Allen Ot E03.9 08/10/2015 KYLE ANDREWS, JAYDON Allen Ot F17.210 08/10/2015 KYLE ANDREWS, JAYDON Allen Ot K21.9 08/10/2015 KYLE ANDREWS, JAYDON Allen Ot Z79.899 08/30/2015 Ot V72.84 08/30/2015 DARIO ANDREWS, ZORAIDA Bunn Ot 719.46 08/30/2015 VLAD ANDREWS, LAQUITA A Ot V76.12 08/30/2015 KYLE ANDREWS, JAYDON Allen Ot 286.9 08/30/2015 KYLE ANDREWS, JAYDON Allen Ot 305.1 08/30/2015 KYLE ANDREWS, JAYDON Allen Ot 492.8 08/30/2015 KYLE ANDREWS, JAYDON Allen Ot D47.3 08/30/2015 KYLE ANDREWS, JAYDON Allen Ot E03.9 08/30/2015 KYLE ANDREWS, JAYDON Allen Ot F17.210 08/30/2015 KYLE ANDREWS, JAYDON Allen Ot K21.9 08/30/2015 KYLE ANDREWS, JAYDON Allen Ot Z79.899 08/30/2015 Ot Z12.31 09/19/2015 KYLE ANDREWS, JAYDON Allen Ot D47.3 ESSENTIAL (HEMORRHAGIC) THROMBOCYTHEMIA 09/19/2015 JAYDON WRIGHT MD Ot E03.9 HYPOTHYROIDISM, UNSPECIFIED 09/19/2015 JAYDON WRIGHT MD Ot F17.210 NICOTINE DEPENDENCE, CIGARETTES, UNCOMPL 09/19/2015 JAYDON WRIGHT MD Ot K21.9 GASTRO-ESOPHAGEAL REFLUX DISEASE WITHOUT 09/19/2015 JAYDON WRIGHT MD Ot Z79.899 OTHER PENITENTIARY (CURRENT) DRUG THERAPY 10/06/2015 Ot V72.84 EXAM PRE- OPERATIVE NOS 10/06/2015 DARIO ANDREWS, ZORAIDA Bunn Ot 719.46 JOINT PAIN-L/LEG 10/06/2015 VLAD ANDREWS, LQAUITA Donald Ot V76.12 OTH SCREEN MAMMO-MALIGN NEOPLASM OF [place] 10/06/2015 JAYDON WRIGHT MD Ot 286.9 COAGULAT DEFECT NEC/NOS 10/06/2015 JAYDON WRIGHT MD Ot 305.1 TOBACCO USE DISORDER 10/06/2015 JAYDON WRIGHT MD Ot 492.8 EMPHYSEMA NEC 10/06/2015 Ot Z12.31 ENCNTR SCREEN MAMMOGRAM FOR MALIGNANT NE 10/06/2015 JAYDON WRIGHT MD Ot D47.3 ESSENTIAL (HEMORRHAGIC) THROMBOCYTHEMIA 10/06/2015 JAYDON WRIGHT MD Ot E03.9 HYPOTHYROIDISM, UNSPECIFIED 10/06/2015 JAYDON WRIGHT MD Ot F17.210 NICOTINE DEPENDENCE, CIGARETTES, UNCOMPL 10/06/2015 JAYDON WRIGHT MD Ot K21.9 GASTRO-ESOPHAGEAL REFLUX DISEASE WITHOUT 10/06/2015 JAYDON WRIGHT MD Ot Z79.899 OTHER PENITENTIARY (CURRENT) DRUG THERAPY 10/06/2015 LAQUITA VALADEZ DO Ot F17.210 NICOTINE DEPENDENCE, CIGARETTES, UNCOMPL 10/06/2015 LAQUITA VALADEZ DO Ot S60.222A CONTUSION OF LEFT HAND, INITIAL ENCOUNTE 10/06/2015 LAQUITA VALADEZ DO Ot W55.12XA STRUCK BY HORSE, INITIAL ENCOUNTER 10/06/2015 LAQUITA VALADEZ DO Ot Y92.[address] 10/06/2015 LAQUITA VALADEZ DO Ot Y99.0 CIVILIAN ACTIVITY DONE FOR INCOME OR PAY 10/10/2015 LAQUITA VALADEZ DO Ot F17.210 NICOTINE DEPENDENCE, CIGARETTES, UNCOMPL 10/10/2015 LAQUITA VALADEZ DO Ot S60.222A CONTUSION OF LEFT HAND, INITIAL ENCOUNTE 10/10/2015 LAQUITA VALADEZ DO Ot W55.12XA STRUCK BY HORSE, INITIAL ENCOUNTER 10/10/2015 LAQUITA VALADEZ DO Ot Y92.[address] 10/10/2015 LAQUITA VALADEZ DO Ot Y99.0 CIVILIAN ACTIVITY DONE FOR INCOME OR PAY 11/23/2015 Ot V72.84 EXAM PRE- OPERATIVE NOS 11/23/2015 DARIO ANDREWS, ZORAIDA Bunn Ot 719.46 JOINT PAIN-L/LEG 11/23/2015 VLAD ANDREWS, LAQUITA Donald Ot V76.12 OTH SCREEN MAMMO-MALIGN NEOPLASM OF [place] 11/23/2015 JAYDON WRIGHT MD Ot 286.9 COAGULAT DEFECT NEC/NOS 11/23/2015 JAYDON WRIGHT MD Ot 305.1 TOBACCO USE DISORDER 11/23/2015 JAYDON WRIGHT MD Ot 492.8 EMPHYSEMA NEC 11/23/2015 Ot Z12.31 ENCNTR SCREEN MAMMOGRAM FOR MALIGNANT NE 11/23/2015 JAYDON WRIGHT MD Ot D47.3 ESSENTIAL (HEMORRHAGIC) THROMBOCYTHEMIA 11/23/2015 JAYDON WRIGHT MD Ot E03.9 HYPOTHYROIDISM, UNSPECIFIED 11/23/2015 JAYDON WRIGHT MD Ot F17.210 NICOTINE DEPENDENCE, CIGARETTES, UNCOMPL 11/23/2015 JAYDON WRIGHT MD Ot K21.9 GASTRO-ESOPHAGEAL REFLUX DISEASE WITHOUT 11/23/2015 JAYDON WRIGHT MD Ot Z79.899 OTHER PENITENTIARY (CURRENT) DRUG THERAPY 12/20/2015 JAYDON WRIGHT MD Ot D47.3 ESSENTIAL (HEMORRHAGIC) THROMBOCYTHEMIA 12/20/2015 JAYDON WRIGHT MD Ot E03.9 HYPOTHYROIDISM, UNSPECIFIED 12/20/2015 JAYDON WRIGHT MD Ot F17.210 NICOTINE DEPENDENCE, CIGARETTES, UNCOMPL 12/20/2015 JAYDON WRIGHT MD Ot K21.9 GASTRO-ESOPHAGEAL REFLUX DISEASE WITHOUT 12/20/2015 JAYDON WRIGHT MD Ot Z79.899 OTHER PENITENTIARY (CURRENT) DRUG THERAPY 12/20/2015 JAYDON WRIGHT MD Ot D47.3 ESSENTIAL (HEMORRHAGIC) THROMBOCYTHEMIA 12/20/2015 JAYDON WRIGHT MD Ot E03.9 HYPOTHYROIDISM, UNSPECIFIED 12/20/2015 JAYDON WRIGHT MD Ot F17.210 NICOTINE DEPENDENCE, CIGARETTES, UNCOMPL 12/20/2015 JAYDON WRIGHT MD Ot K21.9 GASTRO-ESOPHAGEAL REFLUX DISEASE WITHOUT 12/20/2015 JAYDON WRIGHT MD Ot 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 12/21/2015 Ot V72.84 EXAM PRE- OPERATIVE NOS 12/21/2015 DARIO ANDREWS, ZORAIDA Bunn Ot 719.46 JOINT PAIN-L/LEG 12/21/2015 VLAD ANDREWS, LAQUITA A Ot V76.12 OTH SCREEN MAMMO-MALIGN NEOPLASM OF [place] 12/21/2015 JAYDON WRIGHT MD Ot 286.9 COAGULAT DEFECT NEC/NOS 12/21/2015 JAYDON WRIGHT MD Ot 305.1 TOBACCO USE DISORDER 12/21/2015 JAYDON WRIGHT MD Ot 492.8 EMPHYSEMA NEC 12/21/2015 Ot Z12.31 ENCNTR SCREEN MAMMOGRAM FOR MALIGNANT NE 12/21/2015 JAYDON WRIGHT MD Ot D47.3 ESSENTIAL (HEMORRHAGIC) THROMBOCYTHEMIA 12/21/2015 JAYDON WRIGHT MD Ot E03.9 HYPOTHYROIDISM, UNSPECIFIED 12/21/2015 JAYDON WRIGHT MD Ot F17.210 NICOTINE DEPENDENCE, CIGARETTES, UNCOMPL 12/21/2015 JAYDON WRIGHT MD Ot K21.9 GASTRO-ESOPHAGEAL REFLUX DISEASE WITHOUT 12/21/2015 JAYDON WRIGHT MD Ot 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 12/21/2015 Ot V72.84 EXAM PRE- OPERATIVE NOS 12/21/2015 DARIO ANDREWS, ZORAIDA Bunn Ot 719.46 JOINT PAIN-L/LEG 12/21/2015 VLAD ANDREWS, LAQUITA A Ot V76.12 OTH SCREEN MAMMO-MALIGN NEOPLASM OF [place] 12/21/2015 JAYDON WRIGHT MD Ot 286.9 COAGULAT DEFECT NEC/NOS 12/21/2015 JAYDON WRIGHT MD Ot 305.1 TOBACCO USE DISORDER 12/21/2015 JAYDON WRIGHT MD Ot 492.8 EMPHYSEMA NEC 12/21/2015 Ot Z12.31 ENCNTR SCREEN MAMMOGRAM FOR MALIGNANT NE 12/21/2015 JAYDON WRIGHT MD Ot D47.3 ESSENTIAL (HEMORRHAGIC) THROMBOCYTHEMIA 12/21/2015 JAYDON WRIGHT MD Ot E03.9 HYPOTHYROIDISM, UNSPECIFIED 12/21/2015 JAYDON WRIGHT MD Ot F17.210 NICOTINE DEPENDENCE, CIGARETTES, UNCOMPL 12/21/2015 JAYDON WRIGHT MD Ot K21.9 GASTRO-ESOPHAGEAL REFLUX DISEASE WITHOUT 12/21/2015 JAYDON WRIGHT MD Ot 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 12/29/2015 Ot V72.84 EXAM PRE- OPERATIVE NOS 12/29/2015 ZORAIDA BISHOP MD Ot 719.46 JOINT PAIN-L/LEG 12/29/2015 LAQUITA CHU MD Ot V76.12 OTH SCREEN MAMMO-MALIGN NEOPLASM OF [place] 12/29/2015 JAYDON WRIGHT MD Ot 286.9 COAGULAT DEFECT NEC/NOS 12/29/2015 JAYDON WRIGHT MD Ot 305.1 TOBACCO USE DISORDER 12/29/2015 JAYDON WRIGHT MD Ot 492.8 EMPHYSEMA NEC 12/29/2015 Ot Z12.31 ENCNTR SCREEN MAMMOGRAM FOR MALIGNANT NE 12/29/2015 JAYDON WRIGHT MD Ot D47.3 ESSENTIAL (HEMORRHAGIC) THROMBOCYTHEMIA 12/29/2015 JAYDON WRIGHT MD Ot E03.9 HYPOTHYROIDISM, UNSPECIFIED 12/29/2015 JAYDON WRIGHT MD Ot F17.210 NICOTINE DEPENDENCE, CIGARETTES, UNCOMPL 12/29/2015 JAYDON WRIGHT MD Ot K21.9 GASTRO-ESOPHAGEAL REFLUX DISEASE WITHOUT 12/29/2015 JAYDON WRIGHT MD Ot Z79.899 OTHER PENITENTIARY (CURRENT) DRUG THERAPY 01/02/2016 JAYDON WRIGHT MD Ot D47.3 ESSENTIAL (HEMORRHAGIC) THROMBOCYTHEMIA 01/02/2016 JAYDON WRIGHT MD Ot E03.9 HYPOTHYROIDISM, UNSPECIFIED 01/02/2016 JAYDON WRIGHT MD Ot F17.210 NICOTINE DEPENDENCE, CIGARETTES, UNCOMPL 01/02/2016 JAYDON WRIGHT MD Ot K21.9 GASTRO-ESOPHAGEAL REFLUX DISEASE WITHOUT 01/02/2016 JAYDON WRIGHT MD Ot 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 01/03/2016 Ot V72.84 EXAM PRE- OPERATIVE NOS 01/03/2016 ZORAIDA BISHOP MD Ot 719.46 JOINT PAIN-L/LEG 01/03/2016 LAQUITA CHU MD Ot V76.12 OTH SCREEN MAMMO-MALIGN NEOPLASM OF [place] 01/03/2016 JAYDON WRIGHT MD Ot 286.9 COAGULAT DEFECT NEC/NOS 01/03/2016 JAYDON WRIGHT MD Ot 305.1 TOBACCO USE DISORDER 01/03/2016 JAYDON WRIGHT MD Ot 492.8 EMPHYSEMA NEC 01/03/2016 Ot Z12.31 ENCNTR SCREEN MAMMOGRAM FOR MALIGNANT NE 01/03/2016 JAYDON WRIGHT MD Ot D47.3 ESSENTIAL (HEMORRHAGIC) THROMBOCYTHEMIA 01/03/2016 JAYDON WRIGHT MD Ot E03.9 HYPOTHYROIDISM, UNSPECIFIED 01/03/2016 JAYDON WRIGHT MD Ot F17.210 NICOTINE DEPENDENCE, CIGARETTES, UNCOMPL 01/03/2016 JAYDON WRIGHT MD Ot K21.9 GASTRO-ESOPHAGEAL REFLUX DISEASE WITHOUT 01/03/2016 JAYDON WRIGHT MD Ot 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 01/12/2016 AME DO KATIE F Ot Z47.1 AFTERCARE FOLLOWING JOINT REPLACEMENT COATS 01/12/2016 AME DO KATIE F Ot Z96.651 PRESENCE OF RIGHT ARTIFICIAL KNEE JOINT 01/15/2016 AME DO KATIE F Ot Z47.1 AFTERCARE FOLLOWING JOINT REPLACEMENT COATS 01/15/2016 AME DOKATIE F Ot Z96.651 PRESENCE OF RIGHT ARTIFICIAL KNEE JOINT 01/23/2016 Ot V72.84 EXAM PRE- OPERATIVE NOS 01/23/2016 DARIO ANDREWS, ZORAIDA Bunn Ot 719.46 JOINT PAIN-L/LEG 01/23/2016 VLAD ANDREWS, LAQUITA Donald Ot V76.12 OTH SCREEN MAMMO-MALIGN NEOPLASM OF [place] 01/23/2016 JAYDON WRIGHT MD Ot 286.9 COAGULAT DEFECT NEC/NOS 01/23/2016 JAYDON WRIGHT MD Ot 305.1 TOBACCO USE DISORDER 01/23/2016 JAYDON WRIGHT MD Ot 492.8 EMPHYSEMA NEC 01/23/2016 Ot Z12.31 ENCNTR SCREEN MAMMOGRAM FOR MALIGNANT NE 01/23/2016 JAYDON WRIGHT MD Ot D47.3 ESSENTIAL (HEMORRHAGIC) THROMBOCYTHEMIA 01/23/2016 JAYDON WRIGHT MD Ot E03.9 HYPOTHYROIDISM, UNSPECIFIED 01/23/2016 JAYDON WRIGHT MD Ot F17.210 NICOTINE DEPENDENCE, CIGARETTES, UNCOMPL 01/23/2016 JAYDON WRIGHT MD Ot K21.9 GASTRO-ESOPHAGEAL REFLUX DISEASE WITHOUT 01/23/2016 JAYDON WRIGHT MD Ot Z79.899 OTHER PENITENTIARY (CURRENT) DRUG THERAPY 01/25/2016 JAYDON WRIGHT MD Ot D47.3 ESSENTIAL (HEMORRHAGIC) THROMBOCYTHEMIA 01/25/2016 JAYDON WRIGHT MD Ot E03.9 HYPOTHYROIDISM, UNSPECIFIED 01/25/2016 JAYDON WRIGHT MD Ot F17.210 NICOTINE DEPENDENCE, CIGARETTES, UNCOMPL 01/25/2016 JAYDON WRIGHT MD Ot K21.9 GASTRO-ESOPHAGEAL REFLUX DISEASE WITHOUT 01/25/2016 JAYDON WRIGHT MD Ot Z79.899 OTHER PENITENTIARY (CURRENT) DRUG THERAPY 01/30/2016 KATIE MCCLOUD DO Ot Z47.1 AFTERCARE FOLLOWING JOINT REPLACEMENT COATS 01/30/2016 KATIE MCCLOUD DO Ot Z96.651 PRESENCE OF RIGHT ARTIFICIAL KNEE JOINT 02/19/2016 JAYDON WRIGHT MD Ot D47.3 ESSENTIAL (HEMORRHAGIC) THROMBOCYTHEMIA 02/19/2016 JAYDON WRIGHT MD Ot E03.9 HYPOTHYROIDISM, UNSPECIFIED 02/19/2016 JAYDON WRIGHT MD Ot F17.210 NICOTINE DEPENDENCE, CIGARETTES, UNCOMPL 02/19/2016 JAYDON WRIGHT MD Ot K21.9 GASTRO-ESOPHAGEAL REFLUX DISEASE WITHOUT 02/19/2016 JAYDON WRIGHT MD Ot Z79.899 OTHER PENITENTIARY (CURRENT) DRUG THERAPY 02/20/2016 JAYDON WRIGHT MD Ot D47.3 ESSENTIAL (HEMORRHAGIC) THROMBOCYTHEMIA 02/20/2016 JAYDON WRIGHT MD Ot E03.9 HYPOTHYROIDISM, UNSPECIFIED 02/20/2016 JAYDON WRIGHT MD Ot F17.210 NICOTINE DEPENDENCE, CIGARETTES, UNCOMPL 02/20/2016 JAYDON WRIGHT MD Ot K21.9 GASTRO-ESOPHAGEAL REFLUX DISEASE WITHOUT 02/20/2016 JAYDON WRIGHT MD Ot Z79.899 OTHER PENITENTIARY (CURRENT) DRUG THERAPY 02/21/2016 JAYDON WRIGHT MD Ot F17.210 NICOTINE DEPENDENCE, CIGARETTES, UNCOMPL 02/21/2016 JAYDON WRIGHT MD Ot R91.8 OTHER NONSPECIFIC ABNORMAL FINDING OF CH[place] 02/28/2016 JAYDON WRIGHT MD Ot F17.210 NICOTINE DEPENDENCE, CIGARETTES, UNCOMPL 02/28/2016 JAYDON WRIGHT MD Ot R91.8 OTHER NONSPECIFIC ABNORMAL FINDING OF [place] 03/11/2016 Ot V72.84 EXAM PRE- OPERATIVE NOS 03/11/2016 DARIO ANDREWS, ZORAIDA Bunn Ot 719.46 JOINT PAIN-L/LEG 03/11/2016 VLAD ANDREWS, LAQUITA Donald Ot V76.12 OTH SCREEN MAMMO-MALIGN NEOPLASM OF [place] 03/11/2016 JAYDON WRIGHT MD Ot 286.9 COAGULAT DEFECT NEC/NOS 03/11/2016 JAYDON WRIGHT MD Ot 305.1 TOBACCO USE DISORDER 03/11/2016 JAYDON WRIGHT MD Ot 492.8 EMPHYSEMA NEC 03/11/2016 Ot Z12.31 ENCNTR SCREEN MAMMOGRAM FOR MALIGNANT NE 03/13/2016 JAYDON WRIGHT MD Ot F17.210 NICOTINE DEPENDENCE, CIGARETTES, UNCOMPL 03/13/2016 JAYDON WRIGHT MD Ot R91.8 OTHER NONSPECIFIC ABNORMAL FINDING OF [place] 03/15/2016 JAYDON WRIGHT MD Ot F17.210 NICOTINE DEPENDENCE, CIGARETTES, UNCOMPL 03/15/2016 JAYDON WRIGHT MD Ot R91.8 OTHER NONSPECIFIC ABNORMAL FINDING OF [place] 04/16/2016 JAYDON WRIGHT MD Ot D47.3 ESSENTIAL (HEMORRHAGIC) THROMBOCYTHEMIA 04/16/2016 JAYDON WRIGHT MD Ot E03.9 HYPOTHYROIDISM, UNSPECIFIED 04/16/2016 JAYDON WRIGHT MD Ot F17.210 NICOTINE DEPENDENCE, CIGARETTES, UNCOMPL 04/16/2016 JAYDON WRIGHT MD Ot K21.9 GASTRO-ESOPHAGEAL REFLUX DISEASE WITHOUT 04/16/2016 JAYDON WRIGHT MD Ot Z79.899 OTHER PENITENTIARY (CURRENT) DRUG THERAPY 04/18/2016 JAYDON WRIGHT MD Ot D47.3 ESSENTIAL (HEMORRHAGIC) THROMBOCYTHEMIA 04/18/2016 JAYDON WRIGHT MD Ot E03.9 HYPOTHYROIDISM, UNSPECIFIED 04/18/2016 JAYDON WRIGHT MD Ot F17.210 NICOTINE DEPENDENCE, CIGARETTES, UNCOMPL 04/18/2016 JAYDON WRIGHT MD Ot K21.9 GASTRO-ESOPHAGEAL REFLUX DISEASE WITHOUT 04/18/2016 JAYDON WRIGHT MD Ot 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 05/19/2016 JAYDON WRIGHT MD Ot D47.3 ESSENTIAL (HEMORRHAGIC) THROMBOCYTHEMIA 05/19/2016 JAYDON WRIGHT MD Ot E03.9 HYPOTHYROIDISM, UNSPECIFIED 05/19/2016 JAYDON WRIGHT MD Ot F17.210 NICOTINE DEPENDENCE, CIGARETTES, UNCOMPL 05/19/2016 JAYDON WRIGHT MD Ot K21.9 GASTRO-ESOPHAGEAL REFLUX DISEASE WITHOUT 05/19/2016 JAYDON WRIGHT MD Ot 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 05/20/2016 JAYDON WRIGHT MD Ot D47.3 ESSENTIAL (HEMORRHAGIC) THROMBOCYTHEMIA 05/20/2016 JAYDON WRIGHT MD Ot E03.9 HYPOTHYROIDISM, UNSPECIFIED 05/20/2016 JAYDON WRIGHT MD Ot F17.210 NICOTINE DEPENDENCE, CIGARETTES, UNCOMPL 05/20/2016 JAYDON WRIGHT MD Ot K21.9 GASTRO-ESOPHAGEAL REFLUX DISEASE WITHOUT 05/20/2016 JAYDON WRIGHT MD Ot 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 06/12/2016 JAYDON WRIGHT MD Ot D47.3 ESSENTIAL (HEMORRHAGIC) THROMBOCYTHEMIA 06/12/2016 JAYDON WRIGHT MD Ot E03.9 HYPOTHYROIDISM, UNSPECIFIED 06/12/2016 JAYDON WRIGHT MD Ot F17.210 NICOTINE DEPENDENCE, CIGARETTES, UNCOMPL 06/12/2016 JAYDON WRIGHT MD Ot K21.9 GASTRO-ESOPHAGEAL REFLUX DISEASE WITHOUT 06/12/2016 JAYDON WRIGHT MD Ot Z79.899 OTHER PENITENTIARY (CURRENT) DRUG THERAPY 06/13/2016 JAYDON WRIGHT MD, Ot D47.3 ESSENTIAL (HEMORRHAGIC) THROMBOCYTHEMIA 06/13/2016 JAYDON WRIGHT MD Ot E03.9 HYPOTHYROIDISM, UNSPECIFIED 06/13/2016 JAYDON WRIGHT MD Ot F17.210 NICOTINE DEPENDENCE, CIGARETTES, UNCOMPL 06/13/2016 JAYDON WRIGHT MD Ot K21.9 GASTRO-ESOPHAGEAL REFLUX DISEASE WITHOUT 06/13/2016 JAYDON WRIGHT MD Ot 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 07/10/2016 JAYDON WRIGHT MD Ot D47.3 ESSENTIAL (HEMORRHAGIC) THROMBOCYTHEMIA 07/10/2016 JAYDON WRIGHT MD Ot E03.9 HYPOTHYROIDISM, UNSPECIFIED 07/10/2016 JAYDON WRIGHT MD Ot F17.210 NICOTINE DEPENDENCE, CIGARETTES, UNCOMPL 07/10/2016 JAYDON WRIGHT MD Ot K21.9 GASTRO-ESOPHAGEAL REFLUX DISEASE WITHOUT 07/10/2016 JAYDON WRIGHT MD Ot Z79.899 OTHER PENITENTIARY (CURRENT) DRUG THERAPY 08/08/2016 JAYDON WRIGHT MD Ot D47.3 ESSENTIAL (HEMORRHAGIC) THROMBOCYTHEMIA 08/08/2016 JAYDON WRIGHT MD Ot E03.9 HYPOTHYROIDISM, UNSPECIFIED 08/08/2016 JAYDON WRIGHT MD Ot F17.210 NICOTINE DEPENDENCE, CIGARETTES, UNCOMPL 08/08/2016 JAYDON WRIGHT MD Ot K21.9 GASTRO-ESOPHAGEAL REFLUX DISEASE WITHOUT 08/08/2016 JAYDON WRIGHT MD Ot Z79.899 OTHER PENITENTIARY (CURRENT) DRUG THERAPY 08/12/2016 JAYDON WRIGHT MD, Ot D47.3 ESSENTIAL (HEMORRHAGIC) THROMBOCYTHEMIA 08/12/2016 JAYDON WRIGHT MD Ot E03.9 HYPOTHYROIDISM, UNSPECIFIED 08/12/2016 JAYDON WRIGHT MD Ot F17.210 NICOTINE DEPENDENCE, CIGARETTES, UNCOMPL 08/12/2016 JAYDON WRIGHT MD Ot K21.9 GASTRO-ESOPHAGEAL REFLUX DISEASE WITHOUT 08/12/2016 JAYDON WRIGHT MD Ot 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 08/12/2016 JAYDON WRIGHT MD Ot D47.3 ESSENTIAL (HEMORRHAGIC) THROMBOCYTHEMIA 08/12/2016 JAYDON WRIGHT MD Ot E03.9 HYPOTHYROIDISM, UNSPECIFIED 08/12/2016 JAYDON WRIGHT MD Ot F17.210 NICOTINE DEPENDENCE, CIGARETTES, UNCOMPL 08/12/2016 JAYDON WRIGHT MD Ot K21.9 GASTRO-ESOPHAGEAL REFLUX DISEASE WITHOUT 08/12/2016 JAYDON WRIGHT MD Ot 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 08/13/2016 JAYDON WRIGHT MD, Ot D47.3 ESSENTIAL (HEMORRHAGIC) THROMBOCYTHEMIA 08/13/2016 JAYDON WRIGHT MD Ot E03.9 HYPOTHYROIDISM, UNSPECIFIED 08/13/2016 JAYDON WRIGHT MD Ot F17.210 NICOTINE DEPENDENCE, CIGARETTES, UNCOMPL 08/13/2016 JAYDON WRIGHT MD Ot K21.9 GASTRO-ESOPHAGEAL REFLUX DISEASE WITHOUT 08/13/2016 JAYDON WRIGHT MD Ot Z79.899 OTHER PENITENTIARY (CURRENT) DRUG THERAPY 08/20/2016 JAYDON WRIGHT MD Ot F17.210 NICOTINE DEPENDENCE, CIGARETTES, UNCOMPL 08/20/2016 JAYDON WRIGHT MD Ot R91.8 OTHER NONSPECIFIC ABNORMAL FINDING OF CHERY 08/20/2016 JAYDON WRIGHT MD Ot D47.3 ESSENTIAL (HEMORRHAGIC) THROMBOCYTHEMIA 08/20/2016 JAYDON WRIGHT MD Ot E03.9 HYPOTHYROIDISM, UNSPECIFIED 08/20/2016 JAYDON WRIGHT MD Ot F17.210 NICOTINE DEPENDENCE, CIGARETTES, UNCOMPL 08/20/2016 JAYDON WRIGHT MD Ot K21.9 GASTRO-ESOPHAGEAL REFLUX DISEASE WITHOUT 08/20/2016 JAYDON WRIGHT MD Ot Z79.899 OTHER PENITENTIARY (CURRENT) DRUG THERAPY 08/21/2016 JAYDON WRIGHT MD Ot J44.9 CHRONIC OBSTRUCTIVE PULMONARY DISEASE, U 08/21/2016 JAYDON WRIGHT MD Ot R59.0 LOCALIZED ENLARGED LYMPH NODES 08/21/2016 JAYDON WRIGHT MD, Ot J44.9 CHRONIC OBSTRUCTIVE PULMONARY DISEASE, U 08/21/2016 JAYDON WRIGHT MD, Ot R59.0 LOCALIZED ENLARGED LYMPH NODES 09/10/2016 JAYDON WRIGHT MD Ot D47.3 ESSENTIAL (HEMORRHAGIC) THROMBOCYTHEMIA 09/10/2016 JAYDON WRIGHT MD Ot E03.9 HYPOTHYROIDISM, UNSPECIFIED 09/10/2016 JAYDON WRIGHT MD Ot F17.210 NICOTINE DEPENDENCE, CIGARETTES, UNCOMPL 09/10/2016 JAYDON WRIGHT MD Ot K21.9 GASTRO-ESOPHAGEAL REFLUX DISEASE WITHOUT 09/10/2016 JAYDON WRIGHT MD Ot Z79.899 OTHER PENITENTIARY (CURRENT) DRUG THERAPY 09/18/2016 JAYDON WRIGHT MD, Ot J44.9 CHRONIC OBSTRUCTIVE PULMONARY DISEASE, U 09/18/2016 JAYDON WRIGHT MD, Ot R59.0 LOCALIZED ENLARGED LYMPH NODES 10/04/2016 JAYDON WRIGHT MD, Ot J44.9 CHRONIC OBSTRUCTIVE PULMONARY DISEASE, U 10/04/2016 JAYDON WRIGHT MD, Ot R59.0 LOCALIZED ENLARGED LYMPH NODES 03/05/2017 Vlad, Laquita W 780.4 DIZZINESS AND GIDDINESS 03/05/2017 Vlad, Laquita W 793.99 OTHER NONSPECIFIC (ABNORMAL) FINDINGS ON RADIOLOGICAL AND OTHER EXAMINATIONS OF BODY STRUCTURE 03/05/2017 Vlad Laquita W R42 DIZZINESS AND GIDDINESS 03/05/2017 Vlad, Laquita W R93.0 ABNORMAL FINDINGS ON DIAGNOSTIC IMAGING OF SKULL AND HEAD, NOT ELSEWHERE CLASSIFIED 03/05/2017 Vlad, Laquita W 780.4 DIZZINESS AND GIDDINESS 03/05/2017 Vlad, Laquita W 793.99 OTHER NONSPECIFIC (ABNORMAL) FINDINGS ON RADIOLOGICAL AND OTHER EXAMINATIONS OF BODY STRUCTURE 03/05/2017 Vlad, Laquita W R42 DIZZINESS AND GIDDINESS 03/05/2017 Vlad, Laquita W R93.0 ABNORMAL FINDINGS ON DIAGNOSTIC IMAGING OF SKULL AND HEAD, NOT ELSEWHERE CLASSIFIED 04/17/2017 TORI HANNA MD, Ot D47.3 ESSENTIAL (HEMORRHAGIC) THROMBOCYTHEMIA 04/17/2017 TORI HANNA MD, Ot E03.9 HYPOTHYROIDISM, UNSPECIFIED 04/17/2017 TORI HANNA MD Ot F17.210 NICOTINE DEPENDENCE, CIGARETTES, UNCOMPL 04/17/2017 TORI HANNA MD, Ot K21.9 GASTRO-ESOPHAGEAL REFLUX DISEASE WITHOUT 04/17/2017 TORI HANNA MD Ot 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 05/13/2017 TORI HANNA MD Ot D47.3 ESSENTIAL (HEMORRHAGIC) THROMBOCYTHEMIA 05/13/2017 TORI HANNA MD Ot E03.9 HYPOTHYROIDISM, UNSPECIFIED 05/13/2017 TORI HANNA MD Ot F17.210 NICOTINE DEPENDENCE, CIGARETTES, UNCOMPL 05/13/2017 TORI HANNA MD, Ot K21.9 GASTRO-ESOPHAGEAL REFLUX DISEASE WITHOUT 05/13/2017 TORI HANNA MD, Ot Z79.899 OTHER PENITENTIARY (CURRENT) DRUG THERAPY 05/15/2017 TORI HANNA MD Ot D47.3 ESSENTIAL (HEMORRHAGIC) THROMBOCYTHEMIA 05/15/2017 TORI HANNA MD, Ot E03.9 HYPOTHYROIDISM, UNSPECIFIED 05/15/2017 TORI HANNA MD Ot F17.210 NICOTINE DEPENDENCE, CIGARETTES, UNCOMPL 05/15/2017 TORI HANNA MD Ot K21.9 GASTRO-ESOPHAGEAL REFLUX DISEASE WITHOUT 05/15/2017 TORI HANNA MD, Ot Z79.899 OTHER PENITENTIARY (CURRENT) DRUG THERAPY 05/31/2017 Laquita Chu W 487 INFLUENZA 05/31/2017 Laquita Chu J11.1 INFLUENZA DUE TO UNIDENTIFIED INFLUENZA VIRUS WITH OTHER RESPIRATORY MANIFESTATIONS 06/01/2017 Laquita Chu W 244.9 UNSPECIFIED HYPOTHYROIDISM 06/01/2017 Funmilayo Chua W 487 INFLUENZA 06/01/2017 Funmilayo Chua W 487.1 06/01/2017 Laquita Chu W 530.81 ESOPHAGEAL REFLUX 06/01/2017 Laquita Chu W 786.05 SHORTNESS OF BREATH 06/01/2017 Laquita Chu E03.9 HYPOTHYROIDISM, UNSPECIFIED 06/01/2017 Laquita Chu J10.1 FLU DUE TO OTH IDENT INFLUENZA VIRUS W OTH RESP MANIFEST 06/01/2017 Laquita Chu J11.1 INFLUENZA DUE TO UNIDENTIFIED INFLUENZA VIRUS WITH OTHER RESPIRATORY MANIFESTATIONS 06/01/2017 Laquita Chu W K21.9 GASTRO-ESOPHAGEAL REFLUX DISEASE WITHOUT ESOPHAGITIS 06/01/2017 Laquita Chu W R06.02 SHORTNESS OF BREATH 07/15/2017 TORI HANNA MD, Ot D47.3 ESSENTIAL (HEMORRHAGIC) THROMBOCYTHEMIA 07/15/2017 TORI HANNA MD Ot E03.9 HYPOTHYROIDISM, UNSPECIFIED 07/15/2017 TORI HANNA MD Ot F17.210 NICOTINE DEPENDENCE, CIGARETTES, UNCOMPL 07/15/2017 TORI HANNA MD, Ot K21.9 GASTRO-ESOPHAGEAL REFLUX DISEASE WITHOUT 07/15/2017 TORI HANNA MD Ot Z79.899 OTHER PENITENTIARY (CURRENT) DRUG THERAPY 07/16/2017 TORI HANNA MD, Ot D47.3 ESSENTIAL (HEMORRHAGIC) THROMBOCYTHEMIA 07/16/2017 TORI HANNA MD, Ot E03.9 HYPOTHYROIDISM, UNSPECIFIED 07/16/2017 TORI HANNA MD Ot F17.210 NICOTINE DEPENDENCE, CIGARETTES, UNCOMPL 07/16/2017 TORI HANNA MD, Ot K21.9 GASTRO-ESOPHAGEAL REFLUX DISEASE WITHOUT 07/16/2017 TORI HANNA MD Ot 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 10/10/2017 TORI HANNA MD, Ot D47.3 ESSENTIAL (HEMORRHAGIC) THROMBOCYTHEMIA 10/10/2017 TORI HANNA MD, Ot E03.9 HYPOTHYROIDISM, UNSPECIFIED 10/10/2017 TORI HANNA MD Ot F17.210 NICOTINE DEPENDENCE, CIGARETTES, UNCOMPL 10/10/2017 TORI HANNA MD, Ot K21.9 GASTRO-ESOPHAGEAL REFLUX DISEASE WITHOUT 10/10/2017 TORI HANNA MD, Ot 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 10/17/2017 TORI HANNA MD, Ot D47.3 ESSENTIAL (HEMORRHAGIC) THROMBOCYTHEMIA 10/17/2017 TORI HANNA MD Ot E03.9 HYPOTHYROIDISM, UNSPECIFIED 10/17/2017 TORI HANNA MD Ot F17.210 NICOTINE DEPENDENCE, CIGARETTES, UNCOMPL 10/17/2017 TORI HANNA MD, Ot K21.9 GASTRO-ESOPHAGEAL REFLUX DISEASE WITHOUT 10/17/2017 TORI HANAN MD Ot Z79.899 OTHER PENITENTIARY (CURRENT) DRUG THERAPY 11/07/2017 TORI HANNA MD Ot D47.3 ESSENTIAL (HEMORRHAGIC) THROMBOCYTHEMIA 11/07/2017 TORI HANNA MD Ot E03.9 HYPOTHYROIDISM, UNSPECIFIED 11/07/2017 TORI HANNA MD Ot F17.210 NICOTINE DEPENDENCE, CIGARETTES, UNCOMPL 11/07/2017 TORI HANNA MD Ot K21.9 GASTRO-ESOPHAGEAL REFLUX DISEASE WITHOUT 11/07/2017 TORI HANNA MD Ot 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 11/11/2017 TORI HANNA MD Ot D47.3 ESSENTIAL (HEMORRHAGIC) THROMBOCYTHEMIA 11/11/2017 TORI HANNA MD Ot E03.9 HYPOTHYROIDISM, UNSPECIFIED 11/11/2017 TORI HANNA MD Ot F17.210 NICOTINE DEPENDENCE, CIGARETTES, UNCOMPL 11/11/2017 TORI HANNA MD Ot K21.9 GASTRO-ESOPHAGEAL REFLUX DISEASE WITHOUT 11/11/2017 TORI HANNA MD Ot 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 01/07/2018 TORI HANNA MD Ot D47.3 ESSENTIAL (HEMORRHAGIC) THROMBOCYTHEMIA 01/07/2018 TORI HANNA MD Ot E03.9 HYPOTHYROIDISM, UNSPECIFIED 01/07/2018 TORI HANNA MD Ot F17.210 NICOTINE DEPENDENCE, CIGARETTES, UNCOMPL 01/07/2018 TORI HANNA MD Ot K21.9 GASTRO-ESOPHAGEAL REFLUX DISEASE WITHOUT 01/07/2018 TORI HANNA MD Ot 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 01/08/2018 TORI HANNA MD Ot D47.3 ESSENTIAL (HEMORRHAGIC) THROMBOCYTHEMIA 01/08/2018 TORI HANNA MD Ot E03.9 HYPOTHYROIDISM, UNSPECIFIED 01/08/2018 TORI HANNA MD Ot F17.210 NICOTINE DEPENDENCE, CIGARETTES, UNCOMPL 01/08/2018 TORI HANNA MD Ot K21.9 GASTRO-ESOPHAGEAL REFLUX DISEASE WITHOUT 01/08/2018 TORI HANNA MD Ot 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 01/13/2018 TORI HANNA MD Ot D47.3 ESSENTIAL (HEMORRHAGIC) THROMBOCYTHEMIA 01/13/2018 TORI HANNA MD Ot E03.9 HYPOTHYROIDISM, UNSPECIFIED 01/13/2018 TORI HANNA MD Ot F17.210 NICOTINE DEPENDENCE, CIGARETTES, UNCOMPL 01/13/2018 TORI HANNA MD Ot K21.9 GASTRO-ESOPHAGEAL REFLUX DISEASE WITHOUT 01/13/2018 TORI HANNA MD Ot 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 03/31/2018 Laquita Chu 305.1 TOBACCO USE DISORDER 03/31/2018 Laquita Chu W 627.2 SYMPTOMATIC MENOPAUSAL OR FEMALE CLIMACTERIC STATES 03/31/2018 Laquita Chu F17.200 NICOTINE DEPENDENCE, UNSPECIFIED, UNCOMPLICATED 03/31/2018 Laquita Chu V70.0 ROUTINE GENERAL MEDICAL EXAMINATION AT A HEALTH CARE FACILITY 03/31/2018 Laquita Chu Z00.00 ENCOUNTER FOR GENERAL ADULT MEDICAL EXAMINATION WITHOUT ABNORMAL FINDINGS 03/31/2018 Laquita Chu 305.1 TOBACCO USE DISORDER 03/31/2018 Laquita Chu W 627.2 SYMPTOMATIC MENOPAUSAL OR FEMALE CLIMACTERIC STATES 03/31/2018 Laquita Chu F17.200 NICOTINE DEPENDENCE, UNSPECIFIED, UNCOMPLICATED 03/31/2018 Laquita Chu V70.0 ROUTINE GENERAL MEDICAL EXAMINATION AT A HEALTH CARE FACILITY 03/31/2018 Laquita Chu Z00.00 ENCOUNTER FOR GENERAL ADULT MEDICAL EXAMINATION WITHOUT ABNORMAL FINDINGS 04/03/2018 Laquita Chu W 793.80 ABNORMAL MAMMOGRAM, UNSPECIFIED 04/03/2018 Laquita Chu W R92.8 OTHER ABNORMAL AND INCONCLUSIVE FINDINGS ON DIAGNOSTIC IMAGING OF BREAST 04/03/2018 Laquita Chu W 793.80 ABNORMAL MAMMOGRAM, UNSPECIFIED 04/03/2018 Laquita Chu W R92.8 OTHER ABNORMAL AND INCONCLUSIVE FINDINGS ON DIAGNOSTIC IMAGING OF BREAST Procedures There is no data. Results Test Result Range Creatinine - 03/05/17 13:59 Creat 0.70 mg/dL 0.50-1.50 eGFR 84 mL/min/1.73m2 >59 Complete blood count (CBC) with automated white blood cell (WBC) differential - 04/23/18 11:32 Blood leukocytes automated count (number/volume) 12.0 10*3/uL 4.3-11.0 Blood erythrocytes automated count (number/volume) 4.76 10*6/uL 4.35-5.85 Venous blood hemoglobin measurement (mass/volume) 13.7 g/dL 11.5-16.0 Blood hematocrit (volume fraction) 41 % 35-52 Automated erythrocyte mean corpuscular volume 85 [foz_us] 80-99 Automated erythrocyte mean corpuscular hemoglobin (mass per erythrocyte) 29 pg 25-34 Automated erythrocyte mean corpuscular hemoglobin concentration measurement ( mass/volume) 34 g/dL 32-36 Automated erythrocyte distribution width ratio 13.1 % 10.0-14.5 Automated blood platelet count (count/volume) 473 10*3/uL 130-400 Automated blood platelet mean volume measurement 8.8 [foz_us] 7.4-10.4 Automated blood neutrophils/100 leukocytes 57 % 42-75 Automated blood lymphocytes/100 leukocytes 32 % 12-44 Blood monocytes/100 leukocytes 8 % 0-12 Automated blood eosinophils/100 leukocytes 3 % 0-10 Automated blood basophils/100 leukocytes 1 % 0-10 Blood neutrophils automated count (number/volume) 6.8 10*3 1.8-7.8 Blood lymphocytes automated count (number/volume) 3.8 10*3 1.0-4.0 Blood monocytes automated count (number/volume) 0.9 10*3 0.0-1.0 Automated eosinophil count 0.3 10*3/uL 0.0-0.3 Automated blood basophil count (count/volume) 0.1 10*3/uL 0.0-0.1 Comprehensive metabolic panel - 04/23/18 11:32 Serum or plasma sodium measurement (moles/volume) 133 mmol/L 135-145 Serum or plasma potassium measurement (moles/volume) 4.1 mmol/L 3.6-5.0 Serum or plasma chloride measurement (moles/volume) 98 mmol/L 98-107 Carbon dioxide 22 mmol/L 21-32 Serum or plasma anion gap determination (moles/volume) 13 mmol/L 5-14 Serum or plasma urea nitrogen measurement (mass/volume) 15 mg/dL 7-18 Serum or plasma creatinine measurement (mass/volume) 0.70 mg/dL 0.60-1.30 Serum or plasma urea nitrogen/creatinine mass ratio 21 NRG Serum or plasma creatinine measurement with calculation of estimated glomerular filtration rate > NRG Serum or plasma glucose measurement (mass/volume) 96 mg/dL 70-105 Serum or plasma calcium measurement (mass/volume) 9.8 mg/dL 8.5-10.1 Serum or plasma total bilirubin measurement (mass/volume) 0.3 mg/dL 0.1-1.0 Serum or plasma alkaline phosphatase measurement (enzymatic activity/volume) 118 U/L 40-136 Serum or plasma aspartate aminotransferase measurement (enzymatic activity/ volume) 22 U/L 5-34 Serum or plasma alanine aminotransferase measurement (enzymatic activity/volume ) 22 U/L 0-55 Serum or plasma protein measurement (mass/volume) 7.7 g/dL 6.4-8.2 Serum or plasma albumin measurement (mass/volume) 4.6 g/dL 3.2-4.5 Magnesium - 04/23/18 11:32 Magnesium 2.6 mg/dL 1.8-2.4 Serum or plasma creatine kinase measurement (enzymatic activity/volume) - 04/23 11:32 Serum or plasma creatine kinase measurement (enzymatic activity/volume) 92 U/L 29-168 PT panel in platelet poor plasma by coagulation assay - 04/23/18 11:32 Prothrombin time (PT) in platelet poor plasma by coagulation assay 12.9 s 12.2-14.7 INR in platelet poor plasma or blood by coagulation assay 1.0 0.8-1.4 Activated partial thromboplastin time (aPTT) in platelet poor plasma bycoagulation assay - 04/23/18 11:32 Activated partial thromboplastin time (aPTT) in platelet poor plasma bycoagulation assay 34 s 24-35 Serum or plasma creatine kinase MB measurement (enzymatic activity/volume) - 11:32 Serum or plasma creatine kinase MB measurement (enzymatic activity/volume) 1.3 ng/mL <6.6 Serum or plasma troponin i.cardiac measurement (mass/volume) - 04/23/18 11:32 Serum or plasma troponin i.cardiac measurement (mass/volume) < ng/ mL <0.30 Myoglobin, serum - 04/23/18 11:32 Myoglobin, serum 24.6 ng/mL 10.0-92.0 Encounters ACCT No. Visit Date/Time Discharge Status Pt. Type Provider Facility Loc./Unit Complaint [id number] 06/07/2014 14:17:26 06/07/2014 23:59:59 CLS Outpatient TommyCaroYuliyaSantos Gisselle [id number] 04/03/2018 10:49:00 04/03/2018 23:59:00 DIS Outpatient Laquita Chu [id number] 03/31/2018 09:51:00 03/31/2018 23:59:00 DIS Outpatient Laquita Chu [id number] 05/31/2017 17:27:00 06/01/2017 10:45:00 DIS Outpatient Vlad Laquita [facility] MED-SURG [id number] 03/05/2017 13:54:00 03/05/2017 23:59:00 DIS Outpatient Laquita Chu [id number] 01/15/2017 10:27:00 01/15/2017 23:59:00 DIS Outpatient Laquita Chu [id number] 01/13/2017 17:16:00 01/13/2017 23:59:00 DIS Outpatient Laquita Chu [id number] 05/31/2017 18:05:35 Document Registration [id number] 10/09/2017 09:29:00 10/09/2017 23:59:59 CLS Outpatient TORI HANNA MD [facility] ONC [id number] 04/17/2017 15:01:00 07/15/2017 00:01:00 DIS Outpatient TORI HANNA MD [facility] ONC [id number] 05/31/2017 16:06:00 05/31/2017 16:49:00 DIS Emergency GEE CLAUDIO MD [facility] ER SOB,INFLUENZA B,FAINTING [id number] 08/20/2016 15:55:00 09/10/2016 00:01:00 DIS Outpatient JAYDON WRIGHT MD [facility] ONC [id number] 08/20/2016 09:05:00 08/20/2016 23:59:59 CLS Outpatient JAYDON WRIGHT MD [facility] RAD LYMPH NODE ENLARGEMENT [id number] 02/28/2016 14:28:00 05/19/2016 00:01:00 DIS Outpatient JAYDON WRIGHT MD [facility] ONC [id number] 02/20/2016 09:40:00 02/20/2016 23:59:59 CLS Outpatient JAYDON WRIGHT MD [facility] RAD ABNORMAL CHEST CT CURRENT SMOKER [id number] 01/30/2016 10:44:00 01/30/2016 12:36:00 DIS Outpatient KATIE MCCLOUD DO [facility] REHAB S/P R TKR [id number] 10/06/2015 17:59:00 10/06/2015 19:15:00 DIS Emergency RORY BUENO LAQUITA Allen [facility] ER L HAND INJ/SWELLING [id number] 06/28/2015 14:23:00 09/19/2015 00:01:00 DIS Outpatient JAYDON WRIGHT MD [facility] ONC [id number] 10/26/2014 14:56:00 01/09/2015 00:01:00 DIS Outpatient JAYDON WRIGHT MD [facility] ONC [id number] 10/07/2014 17:40:00 10/08/2014 16:45:00 DIS Outpatient THANH ANDREWS FACC, TANMAY BOWEN CCDS [facility] CATH CP, LEUKOCYTOSIS [id number] 06/14/2014 13:18:00 09/12/2014 00:01:00 DIS Outpatient JAYDON WRIGHT MD [facility] ONC [id number] 03/08/2014 10:45:00 05/18/2014 00:01:00 DIS Outpatient JAYDON WRIGHT MD [facility] ONC [id number] 03/15/2014 06:53:00 03/15/2014 23:59:59 CLS Outpatient JAYDON WRIGHT MD [facility] RAD LEUKOCYTOSIS [id number] 11/16/2012 07:31:00 11/16/2012 23:59:59 CLS Outpatient [id number] 11/05/2012 14:26:00 11/05/2012 23:59:59 CLS Outpatient LAQUITA CHU MD [facility] RAD SCREENING [id number] 10/28/2012 08:30:00 10/28/2012 23:59:59 CLS Outpatient ZORAIDA BISHOP MD [facility] RAD POSTERIOR MEDIAL KNEE PAIN [id number] 04/23/2018 11:51:00 ACT Emergency LEOLA VALENTINE [facility] ER CHEST PAIN [id number] 01/08/2018 00:09:00 Document Registration [id number] 06/08/2015 14:21:00 Document Registration [id number] 04/13/2012 08:25:00 Document Registration [id number] 04/08/2012 08:12:00 Document Registration [email or web address] 10/26/2014 14:56:44 ACT Document Registration
[2018-04-23 16:50] VITALS: BP 102/73
== END 2018-04-23 16:50 | disposition home or self-care (01) ==
LOC: EDUNIT# 11:50 → ER 11:51
DX: R07.81 Pleurodynia (principal); K21.9 Gastro-esophageal reflux disease without esophagitis; E78.00 Pure hypercholesterolemia, unspecified; E03.9 Hypothyroidism, unspecified; F17.210 Nicotine dependence, cigarettes, uncomplicated; Z88.0 Allergy status to penicillin; Z87.448 Personal history of other diseases of urinary system; Z88.5 Allergy status to narcotic agent; Z80.3 Family history of malignant neoplasm of breast; Z80.1 Family history of malignant neoplasm of trachea, bronchus and lung; Z90.89 Acquired absence of other organs; Z91.14 Patient's other noncompliance with medication regimen
CPT/HCPCS: 36415; 71045; 80053; 82550; 82553; 83735; 83874; 84484; 85025; 85610; 85730; 93005; 93041

== ENCOUNTER → 2018-07-02 | Outpatient (CLI) | payer MEDICARE, OTHER ==
[2018-07-02 11:13] LABS: BASOPHILS # (AUTO) 0.2 10^3/uL (0.0-0.1); BASOPHILS % (AUTO) 1 % (0-10); EOSINOPHILS # (AUTO) 0.8 10^3/uL (0.0-0.3); EOSINOPHILS % (AUTO) 6 % (0-10); HEMATOCRIT 41 % (35-52); HEMOGLOBIN 13.5 G/DL (11.5-16.0); LYMPHOCYTES # (AUTO) 3.4 X 10^3 (1.0-4.0); LYMPHOCYTES % (AUTO) 26 % (12-44); MEAN CORPUSCULAR HEMOGLOBIN 28 PG (25-34); MEAN CORPUSCULAR HGB CONC 33 G/DL (32-36); MEAN CORPUSCULAR VOLUME 85 FL (80-99); MONOCYTES # (AUTO) 1.1 X 10^3 (0.0-1.0); MONOCYTES % (AUTO) 8 % (0-12); NEUTROPHILS # (AUTO) 7.8 X 10^3 (1.8-7.8); NEUTROPHILS % (AUTO) 59 % (42-75); PLATELET COUNT 435 10^3/uL (130-400); RED CELL DISTRIBUTION WIDTH 13.2 % (10.0-14.5); WHITE BLOOD COUNT 13.2 10^3/uL (4.3-11.0)
[2018-07-02 11:35] LABS: ALANINE AMINOTRANSFERASE 27 U/L (0-55); ALBUMIN 4.5 GM/DL (3.2-4.5); ALKALINE PHOSPHATASE 84 U/L (40-136); BILIRUBIN,TOTAL 0.4 MG/DL (0.1-1.0); BUN/CREATININE RATIO 14; CALCIUM 9.6 MG/DL (8.5-10.1); CARBON DIOXIDE 26 MMOL/L (21-32); CHLORIDE 98 MMOL/L (98-107); CREATININE SERUM 0.78 MG/DL (0.60-1.30); GFR ESTIMATED > 60; GLUCOSE 102 MG/DL (70-105); POTASSIUM 4.2 MMOL/L (3.6-5.0); SODIUM 133 MMOL/L (135-145); TOTAL PROTEIN 7.6 GM/DL (6.4-8.2)
== END ==
LOC: EDSTATUS 01-08 10:46 → ONC 10:51
PROVIDERS: ATTEND Internal Medicine Hematology & Oncology
DX: D47.3 Essential (hemorrhagic) thrombocythemia (principal); E03.9 Hypothyroidism, unspecified; K21.9 Gastro-esophageal reflux disease without esophagitis; F17.210 Nicotine dependence, cigarettes, uncomplicated; Z79.899 Other long term (current) drug therapy
CPT/HCPCS: 36415; 80053; 81270; 85025; 99213

== ENCOUNTER 2018-11-04 09:15 | Outpatient (RCR) | payer MEDICARE, OTHER | END 2018-11-04 09:57 | disposition home or self-care (01) | PROVIDERS: ATTEND Orthopaedic Surgery | DX: Z47.1 Aftercare following joint replacement surgery (principal); Z96.652 Presence of left artificial knee joint ==

== ENCOUNTER 2019-01-14 08:56 | Outpatient (RCR) | payer MEDICARE, OTHER ==
[2019-01-13 13:31] LABS: BASOPHILS # (AUTO) 0.1 10^3/uL (0.0-0.1); BASOPHILS % (AUTO) 1 % (0-10); EOSINOPHILS # (AUTO) 0.5 10^3/uL (0.0-0.3); EOSINOPHILS % (AUTO) 4 % (0-10); HEMATOCRIT 41 % (35-52); HEMOGLOBIN 13.3 G/DL (11.5-16.0); LYMPHOCYTES # (AUTO) 2.5 X 10^3 (1.0-4.0); LYMPHOCYTES % (AUTO) 22 % (12-44); MEAN CORPUSCULAR HEMOGLOBIN 28 PG (25-34); MEAN CORPUSCULAR HGB CONC 33 G/DL (32-36); MEAN CORPUSCULAR VOLUME 85 FL (80-99); MEAN PLATELET VOLUME 8.7 FL (7.4-10.4); MONOCYTES # (AUTO) 0.9 X 10^3 (0.0-1.0); MONOCYTES % (AUTO) 8 % (0-12); NEUTROPHILS # (AUTO) 7.2 X 10^3 (1.8-7.8); NEUTROPHILS % (AUTO) 64 % (42-75); PLATELET COUNT 437 10^3/uL (130-400); RED CELL DISTRIBUTION WIDTH 14.2 % (10.0-14.5); WHITE BLOOD COUNT 11.3 10^3/uL (4.3-11.0)
[2019-01-13 13:58] LABS: ALANINE AMINOTRANSFERASE 22 U/L (0-55); ALBUMIN 4.4 GM/DL (3.2-4.5); ALKALINE PHOSPHATASE 89 U/L (40-136); BILIRUBIN,TOTAL 0.3 MG/DL (0.1-1.0); BUN/CREATININE RATIO 16; CALCIUM 9.5 MG/DL (8.5-10.1); CARBON DIOXIDE 25 MMOL/L (21-32); CHLORIDE 98 MMOL/L (98-107); CREATININE SERUM 0.87 MG/DL (0.60-1.30); GFR ESTIMATED > 60; GLUCOSE 124 MG/DL (70-105); POTASSIUM 4.3 MMOL/L (3.6-5.0); SODIUM 132 MMOL/L (135-145); TOTAL PROTEIN 7.8 GM/DL (6.4-8.2)
== END 2019-04-13 | disposition home or self-care (01) ==
LOC: ONC 08:56
PROVIDERS: ATTEND Internal Medicine Hematology & Oncology
DX: D47.3 Essential (hemorrhagic) thrombocythemia (principal); E03.9 Hypothyroidism, unspecified; K21.9 Gastro-esophageal reflux disease without esophagitis; F17.210 Nicotine dependence, cigarettes, uncomplicated; Z79.899 Other long term (current) drug therapy
CPT/HCPCS: 36415; 80053; 85025; 99213

== ENCOUNTER 2019-04-17 14:17 | Emergency (ER) | payer MEDICARE, OTHER ==
[~2019-04-17] VITALS: Ht 162 cm; Wt 79.0 kg
--- NOTE | 2019-04-17 15:19 | ED Upper Extremity ---
General Chief Complaint: Laceration Stated Complaint: L INDEX FINGER LAC Nursing Triage Note: pt has lac to left index finger from cutting herself on a metal chest 1 hour [employer]. pt takes one baby ASA daily. Nursing Sepsis Screen: No Definite Risk Source: patient Exam Limitations: no limitations History of Present Illness Date Seen by Provider: Apr 17, 2019 Time Seen by Provider: 15:16 Initial Comments To ER with laceration to the radial side DIP joint left pointer finger from a metal chest 1 hour prior to arrival. Tetanus was updated 3 years ago. Onset: just prior to arrival Severity: moderate Pain/Injury Location: left shoulder Method of Injury: fell Modifying Factors: Worse With Movement Allergies and Home Medications Allergies Coded Allergies: Penicillins (Unverified Allergy, Unknown, 10/07/14) codeine (Unverified Allergy, Unknown, 10/07/14) Home Medications Levothyroxine Sodium 112 Mcg Tab, 112 MCG PO DAILY, (Reported) Omeprazole 40 Mg Capsule.dr, 40 MG PO HS, (Reported) Simvastatin 20 Mg Tablet, 20 MG PO HS, (Reported) Triamcinolone Acetonide 10.8 Ml [place], 1 ML NS HS, (Reported) Patient Home Medication List Home Medication List Reviewed: Yes Review of Systems Constitutional: see HPI EENTM: see HPI Respiratory: no symptoms reported Cardiovascular: no symptoms reported Genitourinary: no symptoms reported Musculoskeletal: no symptoms reported Skin: no symptoms reported Psychiatric/Neurological: No Symptoms Reported Past Xtdaxyi-Ulpxjc-Fredvo Hx Patient Social History Alcohol Use: Denies Use Recreational Drug Use: No Smoking Status: Former Smoker Type Used: Cigarettes 2nd Hand Smoke Exposure: Yes Recent Foreign Travel: No Contact w/Someone Who Travel: No Recent Infectious Disease Expo: No Immunizations Up To Date Tetanus Booster (TDap): Less than 5yrs Past Medical History Surgeries: Yes Abdominal, Gallbladder, Orthopedic, Tonsillectomy Respiratory: No Cardiac: Yes High Cholesterol Neurological: No Reproductive Disorders: No Female Reproductive Disorders: Denies Sexually Transmitted Disease: No Gastrointestinal: Yes Gastroesophageal Reflux, Gall Bladder Disease Musculoskeletal: Yes Arthritis Endocrine: Yes Hypothyroidsim Tinnitis Loss of Vision: Denies Hearing Impairment: Hard of Hearing Cancer: No Psychosocial: No Integumentary: No Blood Disorders: Yes (CHRONIC LEUKOCYTOSIS) Adverse Reaction/Blood Tranf: No Family Medical History FH: breast cancer MATERNAL AUNT FH: leukemia 19 MOTHER FH: lung cancer 19 FATHER FH: smoking 19 FATHER Cancer Physical Exam Vital Signs Vital Signs - First Documented 04/17/19 14:42 Temp 37.2 Pulse 90 Resp 18 B/P (MAP) 133/82 (99) Pulse Ox 97 O2 Delivery Room Air Capillary Refill : Less Than 3 Seconds Height, Weight, BMI Height: 5'4.00" Weight: 175lbs. 1.0oz. 79.549225aw; 30.00 BMI Method:Stated General Appearance: WD/WN (this is been), no apparent distress Respiratory: no respiratory distress, no accessory muscle use Shoulder: normal inspection, non-tender Elbow/Forearm: normal inspection, non-tender Wrist: Yes normal inspection, Yes non-tender Hand: Left, laceration (fitted with a skin avulsion to the radial side DIP joint left pointer finger easily controlled bleeding with direct pressure, cleansed with Betadine and closed with skin glue) Skin: normal color, warm/dry Progress/Results/Core Measures Results/Orders Vital Signs/I&O 04/17/19 14:42 Temp 37.2 Pulse 90 Resp 18 B/P (MAP) 133/82 (99) Pulse Ox 97 O2 Delivery Room Air Blood Pressure Mean: 99 POS Departure Impression Primary Impression: Skin avulsion Disposition: 01 HOME, SELF-CARE Condition: Stable Departure-Patient Inst. Decision time for Depature: 15:19 Referrals: EVELIA CHU MD (PCP/Family) Primary Care Physician Patient Instructions: SKIN AVULSION Add. Discharge Instructions: Do not apply any lotions creams or ointments to this allow this glue to follow off on its own in 3-5 days. Return to ER for any concerns. All discharge instructions reviewed with patient and/or family. Voiced understanding. VALERIE JETT DIRECTOR TEEN POST Apr 17, 2019 15:19 POS
[2019-04-17 15:39] VITALS: BP 133/82
== END 2019-04-17 15:40 | disposition home or self-care (01) ==
LOC: EDUNIT# 14:17 → ER 14:19
DX: S61.201A Unspecified open wound of left index finger without damage to nail, initial encounter (principal); E78.00 Pure hypercholesterolemia, unspecified; K21.9 Gastro-esophageal reflux disease without esophagitis; E03.9 Hypothyroidism, unspecified; Z88.0 Allergy status to penicillin; Z88.5 Allergy status to narcotic agent; Z87.891 Personal history of nicotine dependence; Z77.22 Contact with and (suspected) exposure to environmental tobacco smoke (acute) (chronic); Z90.89 Acquired absence of other organs; Z80.3 Family history of malignant neoplasm of breast; Z80.1 Family history of malignant neoplasm of trachea, bronchus and lung; W26.8XXA Contact with other sharp object(s), not elsewhere classified, initial encounter; W19.XXXA Unspecified fall, initial encounter
CPT/HCPCS: 99282

== ENCOUNTER 2019-06-22 14:28 | Outpatient (RCR) | payer MEDICARE, OTHER ==
[2019-06-21 12:34] LABS: BASOPHILS # (AUTO) 0.2 10^3/uL (0.0-0.1); BASOPHILS % (AUTO) 2 % (0-10); EOSINOPHILS % (AUTO) 9 % (0-10); HEMATOCRIT 39 % (35-52); LYMPHOCYTES # (AUTO) 2.3 X 10^3 (1.0-4.0); LYMPHOCYTES % (AUTO) 21 % (12-44); MEAN CORPUSCULAR HEMOGLOBIN 28 PG (25-34); MEAN CORPUSCULAR HGB CONC 33 G/DL (32-36); MEAN CORPUSCULAR VOLUME 84 FL (80-99); MONOCYTES # (AUTO) 1.1 X 10^3 (0.0-1.0); MONOCYTES % (AUTO) 10 % (0-12); NEUTROPHILS # (AUTO) 6.4 X 10^3 (1.8-7.8); NEUTROPHILS % (AUTO) 59 % (42-75); PLATELET COUNT 432 10^3/uL (130-400); WHITE BLOOD COUNT 10.9 10^3/uL (4.3-11.0)
[2019-06-21 12:51] LABS: ALANINE AMINOTRANSFERASE 39 U/L (0-55); ALBUMIN 4.4 GM/DL (3.2-4.5); ALKALINE PHOSPHATASE 106 U/L (40-136); BILIRUBIN,TOTAL 0.3 MG/DL (0.1-1.0); BUN/CREATININE RATIO 16; CALCIUM 9.4 MG/DL (8.5-10.1); CARBON DIOXIDE 22 MMOL/L (21-32); CHLORIDE 102 MMOL/L (98-107); CREATININE SERUM 0.77 MG/DL (0.60-1.30); GFR ESTIMATED > 60; GLUCOSE 101 MG/DL (70-105); POTASSIUM 4.5 MMOL/L (3.6-5.0); SODIUM 134 MMOL/L (135-145); TOTAL PROTEIN 7.8 GM/DL (6.4-8.2)
== END 2019-09-19 | disposition home or self-care (01) ==
LOC: ONC 14:28
PROVIDERS: ATTEND Internal Medicine Hematology & Oncology
DX: D47.3 Essential (hemorrhagic) thrombocythemia (principal); E03.9 Hypothyroidism, unspecified; K21.9 Gastro-esophageal reflux disease without esophagitis; F17.210 Nicotine dependence, cigarettes, uncomplicated; Z79.899 Other long term (current) drug therapy
CPT/HCPCS: 80053; 85025; 99213

== ENCOUNTER → 2020-06-22 | Outpatient (CLI) | payer MEDICARE, OTHER ==
[2020-06-22 13:21] LABS: BASOPHILS # (AUTO) 0.2 10^3/uL (0.0-0.1); BASOPHILS % (AUTO) 1 % (0-10); EOSINOPHILS # (AUTO) 0.8 10^3/uL (0.0-0.3); EOSINOPHILS % (AUTO) 6 % (0-10); HEMATOCRIT 41 % (35-52); HEMOGLOBIN 13.3 g/dL (11.5-16.0); LYMPHOCYTES # (AUTO) 3.8 10^3/uL (1.0-4.0); LYMPHOCYTES % (AUTO) 26 % (12-44); MEAN CORPUSCULAR HEMOGLOBIN 28 pg (25-34); MEAN CORPUSCULAR HGB CONC 32 g/dL (32-36); MEAN CORPUSCULAR VOLUME 85 fL (80-99); MEAN PLATELET VOLUME 9.3 fL (9.0-12.2); MONOCYTES # (AUTO) 1.1 10^3/uL (0.0-1.0); MONOCYTES % (AUTO) 7 % (0-12); NEUTROPHILS # (AUTO) 8.7 10^3/uL (1.8-7.8); NEUTROPHILS % (AUTO) 59 % (42-75); PLATELET COUNT 451 10^3/uL (130-400); WHITE BLOOD COUNT 14.6 10^3/uL (4.3-11.0)
[2020-06-22 13:39] LABS: ALANINE AMINOTRANSFERASE 19 U/L (0-55); ALBUMIN 4.4 GM/DL (3.2-4.5); ALKALINE PHOSPHATASE 99 U/L (40-136); BILIRUBIN,TOTAL 0.3 MG/DL (0.1-1.0); BUN/CREATININE RATIO 20; CALCIUM 9.2 MG/DL (8.5-10.1); CARBON DIOXIDE 24 MMOL/L (21-32); CHLORIDE 100 MMOL/L (98-107); CREATININE SERUM 0.83 MG/DL (0.60-1.30); GFR ESTIMATED > 60; GLUCOSE 129 MG/DL (70-105); SODIUM 134 MMOL/L (135-145); TOTAL PROTEIN 7.8 GM/DL (6.4-8.2)
== END ==
LOC: EDSTATUS 06-21 13:14 → ONC 13:15
PROVIDERS: ATTEND Internal Medicine Hematology & Oncology
DX: D72.829 Elevated white blood cell count, unspecified (principal); D47.3 Essential (hemorrhagic) thrombocythemia; M17.0 Bilateral primary osteoarthritis of knee; K21.9 Gastro-esophageal reflux disease without esophagitis; E03.9 Hypothyroidism, unspecified; C50.911 Malignant neoplasm of unspecified site of right female breast; E78.00 Pure hypercholesterolemia, unspecified; Z79.82 Long term (current) use of aspirin
CPT/HCPCS: 80053; 82728; 83540; 84443; 85025; G0463; 99213

== ENCOUNTER 2020-07-19 05:34 | Outpatient (RCR) | payer MEDICARE, OTHER ==
[~2020-07-19] VITALS: Ht 162.5 cm; Wt 76.0 kg
[~2020-07-19 05:34] MED LIST changes: +LETR2.5T6 PO
== END 2020-07-19 10:06 | disposition home or self-care (01) ==
LOC: PREOP 05:34
PROVIDERS: ATTEND Specialist
DX: Z01.812 Encounter for preprocedural laboratory examination (principal); H25.9 Unspecified age-related cataract; Z20.822 Contact with and (suspected) exposure to COVID-19
CPT/HCPCS: 87635

== ENCOUNTER 2020-07-21 06:24 | Day surgery (SDC) | payer MEDICARE, OTHER ==
[~2020-07-21] VITALS: Ht 162 cm; Wt 76.0 kg
[2020-07-21] MEDS ORDERED: TIMOLOL MALEATE 0.5% 5 ML (TIMOPTIC) BTL OU PRN (06:45)
[2020-07-21] MEDS ORDERED: POVIDONE (BETADINE) OPHTH SOLN 5% 30 ML OP ONE (06:45)
[2020-07-21] MEDS ORDERED: LIDOCAINE PF 1% 2 ML VIAL IR PRN (06:45)
[2020-07-21] MEDS ORDERED: MOXIFLOXACIN OPHTH SOLN 5 MG/ML 0.3 ML SYRINGE OP ONE (06:45)
[2020-07-21] MEDS ORDERED: MIDAZOLAM 2 MG/2 ML (VERSED) VIAL ONE (06:57)
[2020-07-21] MEDS: TETRACAINE 0.5% OPHTH SOLN 4 ML BTL (SINGLE DOSE ONLY) OU PRN ×4 (07:01→07:20)
[2020-07-21 07:02] VITALS: BP 115/94
[2020-07-21] MEDS: PHENYLEPHRINE 10% OPHTH (NEO-SYN) 5 ML BTL OU SCH ×3 (07:10→07:20)
[2020-07-21] MEDS: TROPICAMIDE 1% OPH SOLN (MYDRIACYL) 15 ML BTL OP SCH ×3 (07:10→07:20)
--- NOTE | 2020-07-21 07:48 | Ophthalmologist Pre-Op Note ---
Pre-Operative Progress Note H&P Reviewed The H&P was reviewed, patient examined and no changes noted. Date H&P Reviewed: Jul 21, 2020 Time H&P Reviewed: 07:48 Pre-Op Dx Cataract, Right Eye LUL BALBUENA MD Jul 21, 2020 07:48
[2020-07-21] MEDS ORDERED: acetaZOLAMIDE ER 500 MG CAP (DIAMOX SEQUELS) PO ONE (08:00)
--- NOTE | 2020-07-21 08:14 | Ophthalmology Operative Report ---
Cataract removal/placement IOL PREOPERATIVE DIAGNOSIS: Cataract Right Eye POSTOPERATIVE DIAGNOSIS: Cataract Right Eye PROCEDURE: Cataract removal and placement of posterior chamber implant, right eye SURGEON: Mehrdad Balbuena ANESTHESIA: Topical with sedation COMPLICATIONS: None ESTIMATED BLOOD LOSS: Minimal DESCRIPTION OF PROCEDURE: After proper informed consent was obtained, the patient, a 69 female, was taken to the Operating Room and the right eye was anesthetized with tetracaine. The right eye was then prepped and draped in the usual manner. A wire lid speculum was placed. A paracentesis was made at the left hand position. Preservative free lidocaine was injected into the anterior chamber followed by viscoelastic. A clear corneal incision was made in the temporal position. A capsulorrhexis was preformed and the central nuclear and cortical material were removed. The posterior capsule was polished and Jamie 22.5 AU00T0 IOL was placed into the capsular bag. The residual viscoelastic was aspirated and balanced saline solution was injected into the anterior chamber. Moxifloxacin was injected into the anterior chamber. The wound was checked and found to be water tight. The patient tolerated the procedure well without complications. MEHRDAD BALBUENA MD Jul 21, 2020 08:14
[2020-07-21 08:20] VITALS: BP 108/70
--- NOTE | 2020-07-21 10:27 | Anesthesia-General Post-Op ---
MAC Patient Condition Mental Status/LOC: Same as Preop Cardiovascular: Satisfactory Nausea/Vomiting: Absent Respiratory: Satisfactory Pain: Controlled Complications: Absent Post Op Complications Complications None Follow Up Care/Instructions Patient Instructions None needed. Anesthesiology Discharge Order Discharge Order Patient was seen this morning after the procedure and she was doing well, no complaints, stable vital signs, no apparent adverse anesthesia problems. NIKKI CAMPBELL DO Jul 21, 2020 10:27
== END 2020-07-21 08:25 ==
LOC: SDC 06:24
PROVIDERS: ATTEND Specialist
DX: H25.11 Age-related nuclear cataract, right eye (principal); K21.9 Gastro-esophageal reflux disease without esophagitis; Z79.899 Other long term (current) drug therapy; Z88.0 Allergy status to penicillin; Z88.5 Allergy status to narcotic agent; Z87.891 Personal history of nicotine dependence; Z80.7 Family history of other malignant neoplasms of lymphoid, hematopoietic and related tissues
CPT/HCPCS: 66984; V2632

== ENCOUNTER 2020-08-11 06:30 | Day surgery (SDC) | payer MEDICARE, OTHER ==
[~2020-08-11] VITALS: Ht 162.6 cm; Wt 76.0 kg
[~2020-08-11 06:30] MED LIST changes: +LEVO125T6 PO; +OMEP40CA27 PO
[2020-08-11] MEDS: TETRACAINE 0.5% OPHTH SOLN 4 ML BTL (SINGLE DOSE ONLY) OU PRN ×4 (06:41→06:57)
[2020-08-11] MEDS ORDERED: TIMOLOL MALEATE 0.5% 5 ML (TIMOPTIC) BTL OU PRN (06:45)
[2020-08-11] MEDS ORDERED: POVIDONE (BETADINE) OPHTH SOLN 5% 30 ML OP ONE (06:45)
[2020-08-11] MEDS ORDERED: LIDOCAINE PF 1% 2 ML VIAL IR PRN (06:45)
[2020-08-11] MEDS ORDERED: MOXIFLOXACIN OPHTH SOLN 5 MG/ML 0.3 ML SYRINGE OP ONE (06:45)
[2020-08-11] MEDS: TROPICAMIDE 1% OPH SOLN (MYDRIACYL) 15 ML BTL OP SCH ×3 (06:47→06:57)
[2020-08-11] MEDS: PHENYLEPHRINE 10% OPHTH (NEO-SYN) 5 ML BTL OU SCH ×3 (06:47→06:57)
[2020-08-11 06:54] VITALS: BP 106/56
[2020-08-11] MEDS ORDERED: MIDAZOLAM 2 MG/2 ML (VERSED) VIAL ONE (07:30)
--- NOTE | 2020-08-11 07:47 | Ophthalmologist Pre-Op Note ---
Pre-Operative Progress Note H&P Reviewed The H&P was reviewed, patient examined and no changes noted. Date H&P Reviewed: Aug 11, 2020 Time H&P Reviewed: 07:47 Pre-Op Dx Cataract, Left Eye LUL BALBUENA MD Aug 11, 2020 07:47
[2020-08-11] MEDS ORDERED: acetaZOLAMIDE ER 500 MG CAP (DIAMOX SEQUELS) PO ONE (08:00)
--- NOTE | 2020-08-11 08:08 | Ophthalmology Operative Report ---
Cataract removal/placement IOL PREOPERATIVE DIAGNOSIS: Cataract Left Eye POSTOPERATIVE DIAGNOSIS: Cataract Left Eye PROCEDURE: Cataract removal and placement of posterior chamber implant, left eye SURGEON: Mehrdad Balbuena ANESTHESIA: Topical with sedation COMPLICATIONS: None ESTIMATED BLOOD LOSS: Minimal DESCRIPTION OF PROCEDURE: After proper informed consent was obtained, the patient, a 69 female, was taken to the Operating Room and the left eye was anesthetized with tetracaine. The left eye was then prepped and draped in the usual manner. A wire lid speculum was placed. A paracentesis was made at the left hand position. Preservative free lidocaine was injected into the anterior chamber followed by viscoelastic. A clear corneal incision was made in the temporal position. A capsulorrhexis was preformed and the central nuclear and cortical material were removed. The posterior capsule was polished and an Jamie 21.0 AU00T0 was placed into the capsular bag. The residual viscoelastic was aspirated and balanced saline solution was injected into the anterior chamber. Moxifloxacin was injected into the anterior chamber. The wound was checked and found to be water tight. The patient tolerated the procedure well without complications. MEHRDAD BALBUENA MD Aug 11, 2020 08:08
[2020-08-11 08:14] VITALS: BP 131/82
--- NOTE | 2020-08-11 12:14 | Anesthesia-General Post-Op ---
MAC Patient Condition Mental Status/LOC: Same as Preop Cardiovascular: Satisfactory Nausea/Vomiting: Absent Respiratory: Satisfactory Pain: Controlled Complications: Absent Post Op Complications Complications None Follow Up Care/Instructions Patient Instructions None needed. Anesthesiology Discharge Order Discharge Order Patient is doing well, no complaints, stable vital signs, no apparent adverse anesthesia problems. No complications reported per nursing. FARHEEN CROFT CRNA Aug 11, 2020 12:14
== END 2020-08-11 08:15 | disposition home or self-care (01) ==
LOC: SDC 06:30
PROVIDERS: ATTEND Specialist
DX: H25.12 Age-related nuclear cataract, left eye (principal); K21.9 Gastro-esophageal reflux disease without esophagitis; Z79.899 Other long term (current) drug therapy; Z88.0 Allergy status to penicillin; Z88.5 Allergy status to narcotic agent; Z87.891 Personal history of nicotine dependence; Z80.6 Family history of leukemia
CPT/HCPCS: 66984; V2632

== ENCOUNTER 2021-02-12 08:02 | Outpatient (RCR) | payer MEDICARE, OTHER ==
[~2021-02-12 08:02] MED LIST changes: -OMEP40CA27 PO; +OMEP40CA6 PO
== END 2021-03-13 | disposition home or self-care (01) ==
PROVIDERS: ATTEND Nurse Practitioner Family
DX: M51.17 Intervertebral disc disorders with radiculopathy, lumbosacral region (principal); M70.61 Trochanteric bursitis, right hip; Z85.3 Personal history of malignant neoplasm of breast; E03.9 Hypothyroidism, unspecified; Z96.653 Presence of artificial knee joint, bilateral